=== PATIENT | female | born 1960 | race Caucasian/White ===

== ENCOUNTER → 2017-06-22 | Outpatient (CLI) | payer BC, OTHER ==
[~2017-06-22] MED LIST: ANTI INFLAMMATORY; ASPI-586 PO; AZIT-21 PO; CLIMARA; CYCL10TA9 PO; ESOM20CA PO; LEVO175T2; LVT.112T; NF-ESOM40C; OSPE60TA2 PO; PRD20T PO; PRED20TA PO; THYR120T2 PO; TMZP15C; TRAM50TA2 PO; [UNRECOGNIZED DRUG - REMARK]
--- NOTE | 2017-06-22 11:12 | Diagnostic Imaging Report ---
PROCEDURE: MRI right joint lower extremity without contrast. TECHNIQUE: A multiplanar/multisequence noncontrast enhanced MRI of the right lower extremity was accomplished. INDICATION: Injury to the leg with pain. COMPARISON: There are no previous MRI examinations available for comparison. The plain film examination of the knee joints performed on 08/10/2015 failed to show any sign of an acute abnormality. FINDINGS: On the proton dense sagittal series, there is a vague area of increased signal within the substance of the posterior horn of the medial meniscus. This signal abnormality is in close proximity to the inferior articular surface of the meniscus and I suspect that this does represent a small tear. The lateral meniscus is intact. The proximal portions of the anterior cruciate and posterior cruciate ligaments are indistinct. I do suspect that these portions of the cruciate ligaments are partially torn. The quadriceps and infrapatellar tendons, fibular collateral ligament, biceps femoris tendon, and iliotibial band are intact. There is no sign of a tear of either the medial or lateral retinaculum. On the T2 coronal fat-saturated series, there is generalized increased signal involving the tibial spines. This finding could be secondary to degenerative disease alone. The possibility that there is an element of mild bone edema from a contusion should also be considered. There is no other abnormal signal arising from the osseous structures to suggest bone edema or a fracture. The knee joint is fairly well-maintained. There is a small joint effusion present. There may also be a miniscule Johnson's cyst. IMPRESSION: 1. The indistinct appearance of the proximal portions of the anterior and posterior cruciate ligaments would suggest that these portions of the cruciate ligaments are partially torn. There also appears to be a small tear involving the posterior horn of the medial meniscus. 2. The lateral meniscus and the other major ligaments and tendons are intact. 3. The area of altered signal involving the tibial spines may be related to bone edema from a contusion. This could also be degenerative in nature. Clinical followup is recommended. There is no acute bony abnormality noted otherwise. Dictated by: Dictated on workstation # [id number]
== END ==
LOC: RAD 09:22
PROVIDERS: ATTEND Family Medicine
DX: R93.6 Abnormal findings on diagnostic imaging of limbs (principal)
CPT/HCPCS: 73721

== ENCOUNTER 2017-08-28 10:40 | Emergency (ER) | payer BC, OTHER ==
[~2017-08-28] VITALS: Ht 157.5 cm; Wt 68.0 kg
--- OUTSIDE RECORDS SUMMARY | 2017-08-28 10:46 | XMS REPORT | Continuity of Care Document ---
Author Author [facility] Address Unknown Phone Unavailable Allergies Active Description Code Type Severity Reaction Onset Reported/Identified Relationship to Patient Clinical Status Yes codeine [id number] Drug Allergy Unknown N/A 06/06/2008 Yes morphine [id number] Drug Allergy Unknown N/A 06/06/2008 Yes Penicillins [id number] Drug Allergy Unknown N/A 06/06/2008 Yes Penicillins Drug Allergy N/A N/A 09/14/2012 Medications Problems Date Dx Coded Attending Type Code Diagnosis Diagnosed By 09/14/2012 381.81 EUSTACHIAN TUBE DYSFUNCTION 09/14/2012 473.9 SINUSITIS (CHRONIC) 09/14/2012 MARILU TURNER APRN 381.81 EUSTACHIAN TUBE DYSFUNCTION 09/14/2012 MARILU TURNER APRN 473.9 SINUSITIS (CHRONIC) 05/29/2013 368.10 VISUAL DISTURBANCE UNSPECIFIED 05/29/2013 379.00 SCLERITIS UNSPECIFIED 05/29/2013 MARILU TURNER APRN 368.10 VISUAL DISTURBANCE UNSPECIFIED 05/29/2013 MARILU TURNER APRN 379.00 SCLERITIS UNSPECIFIED 09/06/2013 MARILU TURNER APRN 719.46 PAIN- KNEE 01/12/2014 PRUDENCIO WARD, GRETCHEN Ruiz Ot 719.06 JOINT EFFUSION-L/LEG 01/12/2014 PRUDENCIO WARD, GRETCHEN Ruiz Ot 719.46 JOINT PAIN-L/LEG 12/22/2014 Ot 211.3 BENIGN NEOPLASM LG BOWEL 12/22/2014 Ot V16.0 FAMILY HX-GI MALIGNANCY 12/22/2014 Ot V76.51 SCREEN MAL NEOP-COLON 01/16/2015 Ot 305.1 01/16/2015 Ot 486 01/16/2015 Ot V72.84 01/18/2015 BRAD ALEJANDRA SENIOR MARKETING DATA ANALYST Ot 465.9 ACUTE URI NOS 01/18/2015 ALEJANDRABRAD RICHARD APRN Ot 787.02 NAUSEA ALONE 01/27/2015 Ot V72.84 02/10/2015 ORENDER DO, MARCELA S Ot 244.9 02/10/2015 ORENDER DO, MARCELA S Ot 729.5 02/10/2015 ORENDER DO, MARCELA S Ot 729.81 02/10/2015 ORENDER DO, MARCELA S Ot 780.79 02/10/2015 ORENDER DO, MARCELA S Ot 789.00 08/27/2015 ORENDER DO, MARCELA S Ot E03.9 08/27/2015 ORENDER DO, MARCELA S Ot M25.561 08/27/2015 ORENDER DO, MARCELA S Ot M25.562 12/20/2015 LAKHWINDER HEDRICK Ot F17.210 NICOTINE DEPENDENCE, CIGARETTES, UNCOMPL 12/20/2015 LAKHWINDER HEDRICK Ot M51.26 OTHER INTERVERTEBRAL DISC DISPLACEMENT , 12/20/2015 LAKHWINDER HEDRICK Ot S39.012A STRAIN OF MUSCLE, FASCIA AND TENDON OF L 12/20/2015 LAKHWINDER HEDRICK Ot W10.9XXA FALL (ON) (FROM) UNSPECIFIED STAIRS AND 12/20/2015 LAKHWINDER HEDRICK Ot Y92.[address] IN SINGLE-FAMILY (PRIVATE) COLE 12/20/2015 LAKHWINDER HEDRICK Ot Y99.8 OTHER EXTERNAL CAUSE STATUS 12/24/2015 OSCAR DIALLO Ot M54.5 04/09/2016 OSCAR DIALLO Ot M54.5 LOW BACK PAIN 04/13/2017 Ot V72.84 EXAM PRE-OPERATIVE NOS 04/13/2017 ORENDER DO, MARCELA S Ot 244.9 HYPOTHYROIDISM NOS 04/13/2017 ORENDER DO, MARCELA S Ot 729.5 PAIN IN LIMB 04/13/2017 SHAWNNDER DO, MARCELA S Ot 729.81 SWELLING OF LIMB 04/13/2017 ORENDER DO, MARCELA S Ot 780.79 OTH MALAISE FATIGUE 04/13/2017 ORENDER DO, MARCELA S Ot 789.00 ABDOMINAL PAIN, UNSPECIFIED SITE 04/13/2017 ORENDER DOALLYMARCELA S Ot E03.9 HYPOTHYROIDISM, UNSPECIFIED 04/13/2017 ORENDER DO, MARCELA S Ot M25.561 PAIN IN RIGHT KNEE 04/13/2017 SHAWNNDER DO, MARCELA S Ot M25.562 PAIN IN LEFT KNEE 04/13/2017 IMANIOSCAR POURED CONCRETE WALL TECHNICIAN Ot M54.5 LOW BACK PAIN 06/21/2017 Ot V72.84 EXAM PRE-OPERATIVE NOS 06/21/2017 ORENDER DO, MARCELA S Ot 244.9 HYPOTHYROIDISM NOS 06/21/2017 ORENDER DO, MARCELA S Ot 729.5 PAIN IN LIMB 06/21/2017 ORENDER DO, MARCELA S Ot 729.81 SWELLING OF LIMB 06/21/2017 SHAWNNDER DO, MARCELA S Ot 780.79 OTH MALAISE FATIGUE 06/21/2017 SHAWNNDER DO, MARCELA S Ot 789.00 ABDOMINAL PAIN, UNSPECIFIED SITE 06/21/2017 SHAWNNDER DO, MARCELA S Ot E03.9 HYPOTHYROIDISM, UNSPECIFIED 06/21/2017 SHAWNNDER DO, MARCELA S Ot M25.561 PAIN IN RIGHT KNEE 06/21/2017 SHAWNNDER DO, MARCELA S Ot M25.562 PAIN IN LEFT KNEE 06/21/2017 OSCAR DIALLO Julita POURED CONCRETE WALL TECHNICIAN Ot M54.5 LOW BACK PAIN 07/06/2017 SHAWNNDER DO, MARCELA S Ot R93.6 ABNORMAL FINDINGS ON DIAGNOSTIC IMAGING 07/12/2017 SHAWNNDER DO, MARCELA S Ot R93.6 ABNORMAL FINDINGS ON DIAGNOSTIC IMAGING Procedures Results Encounters ACCT No. Visit Date/Time Discharge Status Pt. Type Provider Facility Loc./Unit Complaint [id number] 09/06/2013 15:19:00 09/06/2013 23: 59:59 [facility] Outpatient MARILU TURNER APRN [id number] 05/29/2013 11:19:00 Document Registration [id number] 06/22/2017 09:22:00 2016 23:59:59 [facility] Outpatient SHAWNNDER DO, MARCELA S [facility] RAD R KNEE PAIN, [id number] 12/23/2015 08:56:00 2015 23:59:59 [facility] Outpatient OSCAR DIALLOP [facility] RAD ACUTE LBP [id number] 12/20/2015 13:34:00 2015 17:03:00 DIS Emergency LAKHWINDER HEDRICK [facility] ER BACK PAIN/INJ [id number] 08/10/2015 16:36:00 2014 23:59:59 CLS Outpatient MARCELA PETIT DO [facility] RAD HYPOTHYROIDISM,HLP,ARTHIRIS, BI KNEE PAIN [id number] 01/18/2015 09:37:00 2014 11:28:00 DIS Emergency BRAD ALEJANDRA APRN [facility] ER NAUSEA,DIZZINESS [id number] 01/16/2015 15:27:00 2014 23:59:59 CLS Outpatient MARCELA PETIT DO [facility] RAD LEFT LEG PAIN [id number] 01/12/2014 17:00:00 2013 17:54:00 DIS Emergency PRUDENCIO WARD, GRETCHEN Ruiz [facility] ER LEFT KNEE SWELLING [id number] 01/16/2015 15:26:00 Document Registration [id number] 01/16/2015 15:26:00 Document Registration [id number] 12/22/2014 09:05:00 Document Registration [id number] 09/14/2009 11:58:00 Document Registration
[2017-08-28] MEDS ORDERED: NS IV 1000 ML 1,000 ML IV ONE (11:12)
[2017-08-28] MEDS ORDERED: ONDANSETRON 4 MG/2 ML (SDV) Z0FRAN IVP ONE ×2 (11:15→14:15)
[2017-08-28] MEDS ORDERED: fentaNYL INJECTION 100 MCG/2 ML AMP IVP ONE (11:15)
[2017-08-28 11:20] LABS: BASOPHILS % (AUTO) 1 % (0-10); EOSINOPHILS # (AUTO) 0.1 10^3/uL (0.0-0.3); EOSINOPHILS % (AUTO) 2 % (0-10); LYMPHOCYTES % (AUTO) 39 % (12-44); MEAN CORPUSCULAR HEMOGLOBIN 31 PG (25-34); MEAN CORPUSCULAR HGB CONC 34 G/DL (32-36); MEAN CORPUSCULAR VOLUME 92 FL (80-99); MEAN PLATELET VOLUME 11.7 FL (7.4-10.4); MONOCYTES # (AUTO) 0.5 X 10^3 (0.0-1.0); MONOCYTES % (AUTO) 7 % (0-12); NEUTROPHILS # (AUTO) 3.9 X 10^3 (1.8-7.8); NEUTROPHILS % (AUTO) 52 % (42-75); PLATELET COUNT 222 10^3/uL (130-400); RED BLOOD COUNT 4.52 10^6/uL (4.35-5.85); RED CELL DISTRIBUTION WIDTH 14.6 % (10.0-14.5); WHITE BLOOD COUNT 7.6 10^3/uL (4.3-11.0)
[2017-08-28 11:37] LABS: ALBUMIN 4.6 GM/DL (3.2-4.5); BILIRUBIN,TOTAL 0.3 MG/DL (0.1-1.0); CALCIUM 9.7 MG/DL (8.5-10.1); CREATININE SERUM 0.97 MG/DL (0.60-1.30); MAGNESIUM 2.5 MG/DL (1.8-2.4); POTASSIUM 3.6 MMOL/L (3.6-5.0); TOTAL PROTEIN 7.8 GM/DL (6.4-8.2)
[2017-08-28] MEDS ORDERED: NS 100 ML (IVPB) BAG IV ONE (12:15)
[2017-08-28] MEDS ORDERED: IOHEXOL 350 MG/ML 100 ML (OMNIPAQUE 350) VIAL IV ONE (12:15)
--- NOTE | 2017-08-28 12:52 | Diagnostic Imaging Report ---
PROCEDURE: CT abdomen and pelvis with contrast. TECHNIQUE: Multiple contiguous axial images were obtained through the abdomen and pelvis after administration of intravenous contrast. INDICATION: Abdominal pain and nausea. Left lower quadrant pain. CONTRAST: 100 mL of Omnipaque 350 was administered intravenously. FINDINGS: There is mild dependent atelectasis in the lung bases. An indeterminate 1.2 cm nodule in the lower aspect of the right middle lobe is seen. This area was evaluated on a sagittal view of the lumbar spine CT from 12/20/2015 and suggests the presence of this nodular density, suggestive of scarring. A followup CT chest in 12 months to ensure further stability is recommended. A calcified granuloma in the left lung base is seen. The liver, gallbladder, pancreas, and the adrenal glands appear unremarkable. The kidneys have symmetric contrast enhancement and excretion. There is no hydronephrosis. The abdominal aorta is normal in caliber. No periaortic significantly enlarged lymph node is seen. There is a small fat-containing periumbilical hernia. No bowel obstruction. The appendix appears normal. Moderate to large amounts of fecal material are seen in the colon and rectum. There is no significant free fluid or fluid collection in the abdomen or pelvis. The osseous structures demonstrate a sclerotic focus in the left femoral head measuring 8 mm, probably a bone island. IMPRESSION: 1. Moderate to large amounts of fecal material are seen in the colon which may relate to constipation. Correlate clinically. 2. Small periumbilical fat-containing hernia. 3. A 1.2 cm right middle lobe nodule without change from December 2015 is favored to be a scar. A followup CT chest in 12 months is recommended to ensure further stability. Dictated by: Dictated on workstation # [id number]
--- NOTE | 2017-08-28 13:02 | ED Abdominal Pain ---
General Chief Complaint: Abdominal/GI Problems Stated Complaint: N/ABD PAIN AND BLOOD IN STOOL Nursing Triage Note: Patient advises she began experiencing severe abdominal pain at approx. 0900 this morning. She advises that she had a small bowel movement this morning that resulted in bleeding when wipeing. She advises that the abdominal pain has become progressively worse with no previous hx. of GI bleeding. Sepsis Screen: No Definite Risk Source of Information: Patient, Family, Spouse Exam Limitations: No Limitations History of Present Illness Time Seen By Provider: 11:30 Initial Comments 57-year-old female patient presents to the emergency department complains of severe abdominal pain beginning at 0900 this a.m. Patient reports having a small bowel movement this a.m. with a small amount of blood noted on the toilet paper after wiping. Patient does complain of pain with the bowel movement. Does report chronic constipation. Patient states she did have a "GI bug" approximately a week and a half ago. Now complains of severe abdominal pain, nausea, and vomiting. Denies fever or chills. Last colonoscopy was approximately 2 years ago. Patient states she is due to have another colonoscopy in the spring. Timing/Duration: Constant, Other (0900 this a.m.) Severity/Quality: Aching, Cramping Location: Generalized Abdomen Radiation: No Radiation Activities at Onset: None Modifying Factors: Worsens With Defecating, Worsens With Movement, Worsens With Palpation Allergies and Home Medications Allergies Coded Allergies: Penicillins (Verified Allergy, Unknown, 08/28/17) codeine (Verified Allergy, Unknown, 08/28/17) morphine (Verified Allergy, Unknown, 08/28/17) Home Medications Aspirin 81 Mg Tablet.dr, 81 MG PO DAILY, (Reported) Cyclobenzaprine HCl 10 Mg Tablet, 5-10 MG PO Q8H PRN for SPASMS, #10 Ref 0 Prescribed by: LAKHWINDER ALDANA on 12/20/15 1651 Esomeprazole Mag Trihydrate 20 Mg Capsule.dr, 1 CAP PO DAILY, #30 (Reported) Hydrocortisone 28.35 Gm Cream.appl, 28.35 GM RC UD, #1 Ref 0 Apply to the affected area 4 times daily 7-10 days Prescribed by: LAKHWINDER ALDANA on 08/28/17 1444 Polyethylene Glycol 3350 119 Gm Powder, 17 GM PO HS, #1 Ref 0 Prescribed by: LAKHWINDER ALDANA on 08/28/17 1444 Prednisone 20 Mg Tab, 40 MG PO DAILY, #10 Ref 0 Take 3 tabs(60mg)daily, decrease by 1/2 tab(10mg)daily. Prescribed by: LAKHWINDER ALDANA on 12/20/15 165 Thyroid,Pork 120 Mg Tablet, Unknown Dose PO DAILY, (Reported) Tramadol HCl 50 Mg Tablet, 50 MG PO Q4H PRN for PAIN, #14 Ref 0 Prescribed by: LAKHWINDER ALDANA on 12/20/151650 [Anti Inflammatory] , TAB DAILY, (Reported) Review of Systems Constitutional: No chills, No diaphoresis, No fever, No malaise EENTM: No Symptoms Reported Respiratory: Denies Cough, Denies Shortness of Air, Denies SOA With Exertion Cardiovascular: Denies Chest Pain, Denies Lightheadedness, Denies Palpitations , Denies Syncope Gastrointestinal: See HPI, Abdomen Distended, Abdominal Pain, Denies Blood Streaked Stools, Constipated, Denies Diarrhea, Denies Difficulty Swallowing, Nausea, Rectal Bleeding, Vomiting Genitourinary: Denies Burning, Denies Frequency, Denies Flank Pain, Denies Hematuria Musculoskeletal: no symptoms reported Skin: no symptoms reported Psychiatric/Neurological: No Symptoms Reported All Other Systems Reviewed Negative Unless Noted: Yes (Negative excepted noted.) Past Dnwrqux-Lkwcss-Jypiwn Hx Patient Social History Alcohol Use: Denies Use Recreational Drug Use: No Smoking Status: Current Everyday Smoker Type Used: Cigarettes Recent Foreign Travel: No Contact w/Someone Who Travel: No Recent Infectious Disease Expo: No Recent Hopitalizations: Yes Physical Abuse: No Sexual Abuse: No Immunizations Up To Date Date of Influenza Vaccine: Jul 16, 2014 Seasonal Allergies Seasonal Allergies: No Surgeries History of Surgeries: Yes 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 (x2), Hysterectomy Respiratory History of Respiratory Disorde: No Cardiovascular History of Cardiac Disorders: No Neurological History of Neurological Disord: No Reproductive System Hx Reproductive Disorders: No 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 Genitourinary History of Genitourinary Disor: No Gastrointestinal History of Gastrointestinal Di: No Gastrointestinal Disorders: Irritable Bowel Musculoskeletal History of Musculoskeletal Dis: No Endocrine History of Endocrine Disorders: Yes Endocrine Disorders: Hyperthyroidism HEENT History of HEENT Disorders: No Cancer History of Cancer: No Psychosocial History of Psychiatric Problem: No Suicide Risk Score: 0 Integumentary History of Skin or Integumenta: No Blood Transfusions History of Blood Disorders: No Reviewed Nursing Assessment Reviewed/Agree w Nursing PMH: Yes Family Medical History Significant Family History: No Pertinent Family Hx Physical Exam Vital Signs VS - Last 72 Hours, by Label 08/28/17 08/28/17 10:40 14:46 Temp 97.6 Pulse 74 65 Resp 14 14 B/P (MAP) 124/81 Pulse Ox 98 98 O2 Delivery Room Air Room Air Capillary Refill : Less Than 3 Seconds General Appearance: WD/WN, no apparent distress HEENT: PERRL/EOMI, pharynx normal Neck: supple, normal inspection Respiratory: lungs clear, normal breath sounds, no respiratory distress, no accessory muscle use Cardiovascular: normal peripheral pulses, regular rate, rhythm, no edema, no murmur Gastrointestinal: normal bowel sounds, no pulsatile mass, distended, guarding ( generalized guarding), No rebound, tenderness (generalized tenderness to palpation) Extremities: no pedal edema, normal capillary refill Back: normal inspection, no CVA tenderness Neurologic/Psychiatric: alert, normal mood/affect, oriented x 3 Skin: normal color, warm/dry Focused Exam Evaluation Lactate Level Laboratory Tests 08/28/17 11:28: Lactic Acid Level 1.55 Lactic Acid Level Laboratory Tests Test 08/28/17 11:28 Lactic Acid Level 1.55 MMOL/L (0.50-2.00) Progress/Results/Core Measures Results/Orders Lab Results Laboratory Tests Test 08/28/17 11:07 08/28/17 11:28 08/28/17 13:41 Range/Units White Blood Count 7.6 4.3-11.0 10^3/uL Red Blood Count 4.52 4.35-5.85 10^6/uL Hemoglobin 13.9 11.5-16.0 G/DL Hematocrit 41 35-52 % Mean Corpuscular Volume 92 80-99 FL Mean Corpuscular Hemoglobin 31 25-34 PG Mean Corpuscular Hemoglobin Concent 34 32-36 G/DL Red Cell Distribution Width 14.6 H 10.0-14.5 % Platelet Count 222 130-400 10^3/uL Mean Platelet Volume 11.7 H 7.4-10.4 FL Neutrophils (%) (Auto) 52 42-75 % Lymphocytes (%) (Auto) 39 12-44 % Monocytes (%) (Auto) 7 0-12 % Eosinophils (%) (Auto) 2 0-10 % Basophils (%) (Auto) 1 0-10 % Neutrophils # (Auto) 3.9 1.8-7.8 X 10^3 Lymphocytes # (Auto) 3.0 1.0-4.0 X 10^3 Monocytes # (Auto) 0.5 0.0-1.0 X 10^3 Eosinophils # (Auto) 0.1 0.0-0.3 10^3/uL Basophils # (Auto) 0.0 0.0-0.1 10^3/uL Sodium Level 141 135-145 MMOL/L Potassium Level 3.6 3.6-5.0 MMOL/L Chloride Level 107 98-107 MMOL/L Carbon Dioxide Level 20 L 21-32 MMOL/L Anion Gap 14 5-14 MMOL/L Blood Urea Nitrogen 17 7-18 MG/DL Creatinine 0.97 0.60-1.30 MG/DL Estimat Glomerular Filtration Rate 59 BUN/Creatinine Ratio 18 Glucose Level 96 70-105 MG/DL Calcium Level 9.7 8.5-10.1 MG/DL Magnesium Level 2.5 H 1.8-2.4 MG/DL Total Bilirubin 0.3 0.1-1.0 MG/DL Aspartate Amino Transf (AST/SGOT) 32 5-34 U/L Alanine Aminotransferase (ALT/SGPT) 22 0-55 U/L Alkaline Phosphatase 65 40-136 U/L Total Protein 7.8 6.4-8.2 GM/DL Albumin 4.6 H 3.2-4.5 GM/DL Lipase 50 8-78 U/L Lactic Acid Level 1.55 0.50-2.00 MMOL/L Urine Color YELLOW Urine Clarity CLEAR Urine pH 7 5-9 Urine Specific [place] 1.010 L 1.016-1.022 Urine Protein NEGATIVE NEGATIVE Urine Glucose (UA) NEGATIVE NEGATIVE Urine Ketones NEGATIVE NEGATIVE Urine Nitrite NEGATIVE NEGATIVE Urine Bilirubin NEGATIVE NEGATIVE Urine Urobilinogen NORMAL NORMAL MG/DL Urine Leukocyte Esterase NEGATIVE NEGATIVE Urine RBC (Auto) NEGATIVE NEGATIVE Urine RBC NONE /HPF Urine WBC NONE /HPF Urine Squamous Epithelial Cells 0-2 /HPF Urine Crystals NONE /LPF Urine Bacteria NEGATIVE /HPF Urine Casts NONE /LPF Urine Mucus NEGATIVE /LPF Urine Culture Indicated NO Urine Opiates Screen NEGATIVE NEGATIVE Urine Oxycodone Screen NEGATIVE NEGATIVE Urine Methadone Screen NEGATIVE NEGATIVE Urine Propoxyphene Screen NEGATIVE NEGATIVE Urine Barbiturates Screen NEGATIVE NEGATIVE Ur Tricyclic Antidepressants Screen NEGATIVE NEGATIVE Urine Phencyclidine Screen NEGATIVE NEGATIVE Urine Amphetamines Screen NEGATIVE NEGATIVE Urine Methamphetamines Screen NEGATIVE NEGATIVE Urine Benzodiazepines Screen NEGATIVE NEGATIVE Urine Cocaine Screen NEGATIVE NEGATIVE Urine Cannabinoids Screen NEGATIVE NEGATIVE My Orders Orders - LAKHWINDER ALDANA Ct Abdomen/Pelvis W (08/28/17 12:07) Iohexol Injection (Omnipaque 350 Mg/Ml 1 (08/28/17 12:15) Ns (Ivpb) (Sodium Chloride 0.9% Ivpb Bag (08/28/17 12:15) Fentanyl Injection (Sublimaze Injection (08/28/17 13:11) Methylnaltrexone Injection (Relistor Inj (08/28/17 13:15) Ondansetron Injection (Zofran Injectio (08/28/17 14:15) Bisacodyl Suppository (Dulcolax Supposit (08/28/17 14:15) Lidocaine 2% (Urojet) (Xylocaine Urojet) (08/28/17 14:15) Medications Given in ED Current Medications Medications Dose Ordered Sig/Kate Route Start Time Stop Time Status Last Admin Dose Admin Bisacodyl 20 mg ONCE ONCE MS 08/28/17 14:15 08/28/17 14:16 DC 08/28/17 14:29 20 MG Fentanyl Citrate 50 mcg ONCE ONCE IVP 08/28/17 11:15 08/28/17 11:16 DC 08/28/17 11:23 50 MCG Iohexol 100 ml ONCE ONCE IV 08/28/17 12:15 08/28/17 12:25 DC 08/28/17 12:25 100 ML Lidocaine HCl 10 ml ONCE ONCE TOP 08/28/17 14:15 08/28/17 14:16 DC 08/28/17 14:30 10 ML Methylnaltrexone [place] 12 mg ONCE ONCE SQ 08/28/17 13:15 08/28/17 13:16 DC 08/28/17 13:31 12 MG Ondansetron HCl 4 mg ONCE ONCE IVP 08/28/17 11:15 08/28/17 11:16 DC 08/28/17 11:23 4 MG Ondansetron HCl 4 mg ONCE ONCE IVP 08/28/17 14:15 08/28/17 14:16 DC 08/28/17 14:29 4 MG Sodium Chloride 100 ml ONCE ONCE IV 08/28/17 12:15 08/28/17 12:25 DC 08/28/17 12:25 80 ML Sodium Chloride 1,000 ml @ 0 mls/hr Q0M ONCE IV 08/28/17 11:12 08/28/17 11:15 DC 08/28/17 11:23 0 MLS/HR Vital Signs/I&O Vital Sign - Last 12Hours 08/28/17 08/28/17 10:40 14:46 Temp 97.6 Pulse 74 65 Resp 14 14 B/P (MAP) 124/81 Pulse Ox 98 98 O2 Delivery Room Air Room Air Blood Pressure Mean: 95 Diagnostic Imaging Diagonstic Imaging: CT Plain Films/CT/US/NM/MRI: abdomen, pelvis Comments FINDINGS: There is mild dependent atelectasis in the lung bases. An indeterminate 1.2 cm nodule in the lower aspect of the right middle lobe is seen. This area was evaluated on a sagittal view of the lumbar spine CT from 03/2016 and suggests the presence of this nodular density, suggestive of scarring. A followup CT chest in 12 months to ensure further stability is recommended. A calcified granuloma in the left lung base is seen. The liver, gallbladder, pancreas, and the adrenal glands appear unremarkable. The kidneys have symmetric contrast enhancement and excretion. There is no hydronephrosis. The abdominal aorta is normal in caliber. No periaortic significantly enlarged lymph node is seen. There is a small fat-containing periumbilical hernia. No bowel obstruction. The appendix appears normal. Moderate to large amounts of fecal material are seen in the colon and rectum. There is no significant free fluid or fluid collection in the abdomen or pelvis. The osseous structures demonstrate a sclerotic focus in the left femoral head measuring 8 mm, probably a bone island. IMPRESSION: 1. Moderate to large amounts of fecal material are seen in the colon which may relate to constipation. Correlate clinically. 2. Small periumbilical fat-containing hernia. 3. A 1.2 cm right middle lobe nodule without change from December 2015 is favored to be a scar. A followup CT chest in 12 months is recommended to ensure further stability. Dictated on workstation # [id number] Reviewed: Reviewed by Me (radiology report reviewed by me) Departure Communication (Admissions) Progress Notes Patient seen and evaluated. Labs obtained as well as CT abdomen/pelvis due to continued moderate to severe pain. Patient was given 50 g of fentanyl and 4 mg of Zofran with improvement in symptoms; however, patient's symptoms did return and did require another 50 g of fentanyl and [address] abdomen /pelvis showed moderate to severe constipation. Patient states she does take tramadol at home for chronic pain. I discussed all laboratory and diagnostic findings with the patient as well as symptoms being caused by the moderate to severe constipation. Patient was given 12 mg subcutaneous of Relistor to counteract the effects tramadol on the colon. Plan for discharge to home with follow-up as an outpatient with Dr. Kirkland. Return precautions were discussed with the patient as described in the discharge instructions of this report. Patient verbalizes understanding and agrees with the treatment plan. Patient ambulated from the emergency department without difficulty. Impression Impression: Primary Impression: Abdominal pain Qualified Codes: R10.84 - Generalized abdominal pain Additional Impression: Constipation Qualified Codes: K59.03 - Drug induced constipation Disposition: HOME, SELF-CARE Condition: Improved Departure-Patient Inst. Decision time for Depature: 14:35 Referrals: MARCELA KIRKLAND DO (PCP/Family) Primary Care Physician Patient Instructions: Constipation, Adult (DC), Acute Abdomen (Belly Pain), Adult (DC) Add. Discharge Instructions: All discharge instructions reviewed with patient and/or family. Voiced understanding. Medications as instructed. Drink plenty of fluids. Continue usual home medications. Colace stool softener 100 mg by mouth 2-3 times daily as needed for constipation. MiraLAX 17 g mixed with 8 ounces of fluids by mouth twice daily 3 days, then at bedtime as needed for constipation. Magnesium citrate one bottle followed by 8 ounces of fluids times 1 dose for severe constipation. High-fiber diet. Follow-up with your primary care provider for recheck as an outpatient. Call for appointment time. Return in the emergency department for worsened pain, fever, vomiting, vomiting blood, rectal bleeding, black stools, or any other concerns. Scripts Hydrocortisone (Proctosol-Hc) 28.35 Gm Cream.appl 28.35 GM RC UD, #1 EA 0 Refills Apply to the affected area 4 times daily 7-10 days Prov: LAKHWINDER ALDANA 08/28/17 Polyethylene Glycol 3350 (Miralax) 119 Gm Powder 17 GM PO HS, #1 EA 0 Refills Prov: LAKHWINDER ALDANA 08/28/17 LAKHWINDER ALDANA Aug 28, 2017 13:02
[2017-08-28] MEDS ORDERED: fentaNYL INJECTION 100 MCG/2 ML AMP IVP STA (13:11)
[2017-08-28] MEDS ORDERED: METHYLNALTREXONE 12 MG/0.6 ML (RELISTOR) VIAL SQ ONE (13:15)
[2017-08-28 13:51] LABS: BILIRUBIN,URINE NEGATIVE (NEGATIVE); KETONES,URINE NEGATIVE (NEGATIVE); LEUKOCYTE ESTERASE ,URINE NEGATIVE (NEGATIVE); NITRITE,URINE NEGATIVE (NEGATIVE); PH,URINE 7 (5-9); PROTEIN,URINE NEGATIVE (NEGATIVE); UROBILINOGEN,URINE NORMAL (NORMAL)
[2017-08-28 14:04] LABS: SQUAMOUS EPITHELIAL CELL,UR 0-2 /HPF
[2017-08-28] MEDS ORDERED: LIDOCAINE UROJET 2% GEL 10 ML PKG TOP ONE (14:15)
[2017-08-28] MEDS ORDERED: BISACODYL 10 MG SUPP (DULCOLAX) PR ONE (14:15)
[2017-08-28] MEDS ORDERED: POLY119P5 PO (14:44)
[2017-08-28] MEDS ORDERED: HYDR28.341 RC (14:44)
[2017-08-28 14:46] VITALS: BP 119/77
== END 2017-08-28 14:48 | disposition home or self-care (01) ==
LOC: EDUNIT# 10:40 → ER 10:42
DX: K59.00 Constipation, unspecified (principal); E05.90 Thyrotoxicosis, unspecified without thyrotoxic crisis or storm; F17.210 Nicotine dependence, cigarettes, uncomplicated; Z90.710 Acquired absence of both cervix and uterus; Z87.59 Personal history of other complications of pregnancy, childbirth and the puerperium; Z87.19 Personal history of other diseases of the digestive system; Z79.82 Long term (current) use of aspirin
CPT/HCPCS: 36415; 74177; 80053; 80306; 81000; 83605; 83690; 83735; 85025

== ENCOUNTER 2018-11-18 16:40 | Observation (INO) | payer BC, OTHER ==
[~2018-11-18] VITALS: Ht 157.5 cm; Wt 67.3 kg
[~2018-11-18 16:40] MED LIST changes: +HYDR28.341 RC; +POLY119P5 PO
--- OUTSIDE RECORDS SUMMARY | 2018-11-18 17:03 | XMS REPORT | Continuity of Care Document ---
Author Author [facility] Address Unknown Phone Unavailable Allergies Active Description Code Type Severity Reaction Onset Reported/Identified Relationship to Patient Clinical Status Yes Penicillins Drug Allergy N/A N/A 09/14/2012 Yes codeine [id number] Drug Allergy Unknown N/A 08/28/2017 Yes morphine [id number] Drug Allergy Unknown N/A 08/28/2017 Yes Penicillins [id number] Drug Allergy Unknown N/A 08/28/2017 Medications There is no data. 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 Ot 465.9 ACUTE URI NOS 01/18/2015 BRAD ALEJANDRA APRN Ot 787.02 NAUSEA ALONE 01/27/2015 Ot [...] LAKHWINDER HEDRICK Ot M51.26 OTHER INTERVERTEBRAL DISC DISPLACEMENT, 12/20/2015 LAKHWINDER HEDRICK Ot S39.012A STRAIN OF MUSCLE, FASCIA AND TENDON OF L 12/20/2015 LAKHWINDER HEDRICK Ot W10.9XXA FALL (ON) (FROM) UNSPECIFIED STAIRS AND 12/20/2015 LAKHWINDER HEDRICK Ot Y92.[address] IN SINGLE-FAMILY (PRIVATE) COLE 12/20/2015 LAKHWINDER HEDRICK Ot Y99.8 OTHER EXTERNAL CAUSE STATUS 12/24/2015 OSCAR DIALLO Ot M54.5 04/09/2016 OSCAR DIALLO Ot M54.5 LOW BACK PAIN 04/13/2017 Ot V72.84 EXAM PRE- OPERATIVE NOS 04/13/2017 ORENDER DO, MARCELA S Ot 244.9 HYPOTHYROIDISM NOS 04/13/2017 ORENDER DO, MARCELA S Ot 729.5 PAIN IN LIMB 04/13/2017 ORENDER DO, MARCELA S Ot 729.81 SWELLING OF LIMB 04/13/2017 ORENDER DO, MARCELA S Ot 780.79 OTH MALAISE FATIGUE 04/13/2017 ORENDER DO, MARCELA S Ot 789.00 ABDOMINAL PAIN, UNSPECIFIED SITE 04/13/2017 ORENDER DO, MARCELA S Ot E03.9 HYPOTHYROIDISM, UNSPECIFIED 04/13/2017 ORENDER DO, MARCELA S Ot M25.561 PAIN IN RIGHT KNEE 04/13/2017 ORENDER DO, MARCELA S Ot M25.562 PAIN IN LEFT KNEE 04/13/2017 OSCAR DIALLO MANAGER MATH Ot M54.5 LOW BACK PAIN 06/21/2017 Ot V72.84 EXAM PRE- OPERATIVE NOS 06/21/2017 ORENDER DO, MARCELA S Ot 244.9 HYPOTHYROIDISM NOS 06/21/2017 ORENDER DO, MARCELA S Ot 729.5 PAIN IN LIMB 06/21/2017 ORENDER DO, MARCELA S Ot 729.81 SWELLING OF LIMB 06/21/2017 ORENDER DO, MARCELA S Ot 780.79 OTH MALAISE FATIGUE 06/21/2017 ORENDER DO, MARCELA S Ot 789.00 ABDOMINAL PAIN, UNSPECIFIED SITE 06/21/2017 SHAWNNDER DO, MARCELA S Ot E03.9 HYPOTHYROIDISM, UNSPECIFIED 06/21/2017 ORENDER DO, MARCELA S Ot M25.561 PAIN IN RIGHT KNEE 06/21/2017 ORENDER DO, MARCELA S Ot M25.562 PAIN IN LEFT KNEE 06/21/2017 OSCAR DIALLO MANAGER MATH Ot M54.5 LOW BACK PAIN 07/06/2017 SHAWNNDER DO, MARCELA S Ot R93.6 ABNORMAL FINDINGS ON DIAGNOSTIC IMAGING 07/12/2017 SHAWNNDER DO, MARCELA S Ot R93.6 ABNORMAL FINDINGS ON DIAGNOSTIC IMAGING 08/28/2017 ORENDER DO, MARCELA S Ot R93.6 ABNORMAL FINDINGS ON DIAGNOSTIC IMAGING 08/28/2017 LAKHWINDER HEDRICK Ot E05.90 THYROTOXICOSIS, UNSP WITHOUT THYROTOXIC 08/28/2017 LAKHWINDER HEDRICK Ot F17.210 NICOTINE DEPENDENCE, CIGARETTES, UNCOMPL 08/28/2017 LAKHWINDER HEDRICK Ot K59.00 CONSTIPATION, UNSPECIFIED 08/28/2017 LAKHWINDER HEDRICK Ot R10.84 GENERALIZED ABDOMINAL PAIN 08/28/2017 LAKHWINDER HEDRICK Ot Z79.82 RESIDENTIAL (CURRENT) USE OF ASPIRIN 08/28/2017 LAKHWINDER HEDRICK Ot Z87.19 PERSONAL HISTORY OF OTHER DISEASES OF TH 08/28/2017 LAKHWINDER HEDRICK Ot Z87.59 PERSONAL HISTORY OF COMP OF PREG, CHLDBR 08/28/2017 LAKHWINDER HEDRICK Ot Z90.710 ACQUIRED ABSENCE OF BOTH CERVIX AND UTER 09/03/2017 LAKHWINDER HEDRICK Ot E05.90 THYROTOXICOSIS, UNSP WITHOUT THYROTOXIC 09/03/2017 LAKHWINDER HEDRICK Ot F17.210 NICOTINE DEPENDENCE, CIGARETTES, UNCOMPL 09/03/2017 LAKHWINDER HEDRICK Ot K59.00 CONSTIPATION, UNSPECIFIED 09/03/2017 LAKHWINDER HEDRICK Ot R10.84 GENERALIZED ABDOMINAL PAIN 09/03/2017 LAKHWINDER HEDRICK Ot 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 Results Test Result Range Complete blood count (CBC) with automated white blood cell (WBC) differential - 08/28/17 11:07 Blood leukocytes automated count (number/volume) 7.6 10*3/uL 4.3-11.0 Blood erythrocytes automated count (number/volume) 4.52 10*6/uL 4.35-5.85 Venous blood hemoglobin measurement (mass/volume) 13.9 g/dL 11.5-16.0 Blood hematocrit (volume fraction) 41 % 35-52 Automated erythrocyte mean corpuscular volume 92 [foz_us] 80-99 Automated erythrocyte mean corpuscular hemoglobin (mass per erythrocyte) 31 pg 25-34 Automated erythrocyte mean corpuscular hemoglobin concentration measurement ( mass/volume) 34 g/dL 32-36 Automated erythrocyte distribution width ratio 14.6 % 10.0-14.5 Automated blood platelet count (count/volume) 222 10*3/uL 130-400 Automated blood platelet mean volume measurement 11.7 [foz_us] 7.4-10.4 Automated blood neutrophils/100 leukocytes 52 % 42-75 Automated blood lymphocytes/100 leukocytes 39 % 12-44 Blood monocytes/100 leukocytes 7 % 0-12 Automated blood eosinophils/100 leukocytes 2 % 0-10 Automated blood basophils/100 leukocytes 1 % 0-10 Blood neutrophils automated count (number/volume) 3.9 10*3 1.8-7.8 Blood lymphocytes automated count (number/volume) 3.0 10*3 1.0-4.0 Blood monocytes automated count (number/volume) 0.5 10*3 0.0-1.0 Automated eosinophil count 0.1 10*3/uL 0.0-0.3 Automated blood basophil count (count/volume) 0.0 10*3/uL 0.0-0.1 Comprehensive metabolic panel - 08/28/17 11:07 Serum or plasma sodium measurement (moles/volume) 141 mmol/L 135-145 Serum or plasma potassium measurement (moles/volume) 3.6 mmol/L 3.6-5.0 Serum or plasma chloride measurement (moles/volume) 107 mmol/L 98-107 Carbon dioxide 20 mmol/L 21-32 Serum or plasma anion gap determination (moles/volume) 14 mmol/L 5-14 Serum or plasma urea nitrogen measurement (mass/volume) 17 mg/dL 7-18 Serum or plasma creatinine measurement (mass/volume) 0.97 mg/dL 0.60-1.30 Serum or plasma urea nitrogen/creatinine mass ratio 18 NRG Serum or plasma creatinine measurement with calculation of estimated glomerular filtration rate 59 NRG Serum or plasma glucose measurement (mass/volume) 96 mg/dL 70-105 Serum or plasma calcium measurement (mass/volume) 9.7 mg/dL 8.5-10.1 Serum or plasma total bilirubin measurement (mass/volume) 0.3 mg/dL 0.1-1.0 Serum or plasma alkaline phosphatase measurement (enzymatic activity/volume) 65 U/L 40-136 Serum or plasma aspartate aminotransferase measurement (enzymatic activity/ volume) 32 U/L 5-34 Serum or plasma alanine aminotransferase measurement (enzymatic activity/volume ) 22 U/L 0-55 Serum or plasma protein measurement (mass/volume) 7.8 g/dL 6.4-8.2 Serum or plasma albumin measurement (mass/volume) 4.6 g/dL 3.2-4.5 Magnesium - 08/28/17 11:07 Magnesium 2.5 mg/dL 1.8-2.4 Lipase - 08/28/17 11:07 Lipase 50 U/L 8-78 Blood lactic acid measurement (moles/volume) - 08/28/17 11:28 Blood lactic acid measurement (moles/volume) 1.55 mmol/L 0.50-2.00 Complete urinalysis with reflex to culture - 08/28/17 13:41 Urine color determination YELLOW NRG Urine clarity determination CLEAR NRG Urine pH measurement by test strip 7 5-9 Specific gravity of urine by test strip 1.010 1.016- 1.022 Urine protein assay by test strip, semi-quantitative NEGATIVE NEGATIVE Urine glucose detection by automated test strip NEGATIVE NEGATIVE Erythrocytes detection in urine sediment by light microscopy NEGATIVE NEGATIVE Urine ketones detection by automated test strip NEGATIVE NEGATIVE Urine nitrite detection by test strip NEGATIVE NEGATIVE Urine total bilirubin detection by test strip NEGATIVE NEGATIVE Urine urobilinogen measurement by automated test strip (mass/volume) NORMAL NORMAL Urine leukocyte esterase detection by dipstick NEGATIVE NEGATIVE Automated urine sediment erythrocyte count by microscopy (number/high power field) NONE NRG Automated urine sediment leukocyte count by microscopy (number/high power field ) NONE NRG Bacteria detection in urine sediment by light microscopy NEGATIVE NRG Squamous epithelial cells detection in urine sediment by light microscopy 0-2 NRG Crystals detection in urine sediment by light microscopy NONE NRG Casts detection in urine sediment by light microscopy NONE NRG Mucus detection in urine sediment by light microscopy NEGATIVE NRG Complete urinalysis with reflex to culture NO NRG Urine drug screening test - 08/28/17 13:41 Urine phencyclidine detection by screening method NEGATIVE NEGATIVE Urine benzodiazepines detection by screening method NEGATIVE NEGATIVE Urine cocaine detection NEGATIVE NEGATIVE Urine amphetamines detection by screening method NEGATIVE NEGATIVE Urine methamphetamine detection by screening method NEGATIVE NEGATIVE Urine cannabinoids detection by screening method NEGATIVE NEGATIVE Urine opiates detection by screening method NEGATIVE NEGATIVE Urine barbiturates detection NEGATIVE NEGATIVE Screening urine tricyclic antidepressants detection NEGATIVE NEGATIVE Urine methadone detection by screening method NEGATIVE NEGATIVE Urine oxycodone detection NEGATIVE NEGATIVE Urine propoxyphene detection NEGATIVE NEGATIVE Encounters ACCT No. Visit Date/Time Discharge Status Pt. 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, MARILU A [id number] 05/29/2013 11:19:00 Document Registration 04/28/18 10/01/2018 09:06:07 10/01/2018 23:59:59 CLS Outpatient [id number] 01/18/2015 09:37:53 ACT Document Registration [id number] 08/28/2017 10:42:00 08/28/2017 14:48:00 DIS Emergency LAKHWINDER HEDRICK [facility] ER N/ABD PAIN AND BLOOD IN STOOL [id number] 06/22/2017 09:22:00 06/22/2017 23:59:59 CLS Outpatient MARCELA PETIT DO [facility] RAD R KNEE PAIN, [id number] 12/23/2015 08:56:00 12/23/2015 23:59:59 CLS Outpatient OSCAR DIALLO MANAGER MATH [facility] RAD ACUTE LBP [id number] 12/20/2015 13:34:00 12/20/2015 17:03:00 DIS Emergency LAKHWINDER HEDRICK [facility] ER BACK PAIN/INJ [id number] 08/10/2015 16:36:00 08/10/2015 23:59:59 CLS Outpatient MARCELA PETIT DO S [facility] RAD HYPOTHYROIDISM,HLP, ARTHIRIS,BI KNEE PAIN [id number] 01/18/2015 09:37:00 01/18/2015 11:28:00 DIS Emergency BRAD ALEJANDRA APRN [facility] ER NAUSEA,DIZZINESS [id number] 01/16/2015 15:27:00 01/16/2015 23:59:59 CLS Outpatient MARCELA PETIT DO S [facility] RAD LEFT LEG PAIN [id number] 01/12/2014 17:00:00 01/12/2014 17:54:00 DIS Emergency GRETCHEN FLANNERY MD [facility] ER LEFT KNEE SWELLING [id number] 01/16/2015 15:26:00 Document Registration [id number] 01/16/2015 15:26:00 Document Registration [id number] 12/22/2014 09:05:00 Document Registration [id number] 09/14/2009 11:58:00 Document Registration
[2018-11-18 17:29] LABS: BASOPHILS % (AUTO) 1 % (0-10); EOSINOPHILS # (AUTO) 0.1 10^3/uL (0.0-0.3); EOSINOPHILS % (AUTO) 2 % (0-10); HEMATOCRIT 35 % (35-52); HEMOGLOBIN 11.5 G/DL (11.5-16.0); LYMPHOCYTES # (AUTO) 2.2 X 10^3 (1.0-4.0); LYMPHOCYTES % (AUTO) 40 % (12-44); MEAN CORPUSCULAR HEMOGLOBIN 32 PG (25-34); MEAN CORPUSCULAR HGB CONC 33 G/DL (32-36); MEAN CORPUSCULAR VOLUME 95 FL (80-99); MEAN PLATELET VOLUME 11.4 FL (7.4-10.4); MONOCYTES # (AUTO) 0.3 X 10^3 (0.0-1.0); MONOCYTES % (AUTO) 6 % (0-12); NEUTROPHILS # (AUTO) 2.8 X 10^3 (1.8-7.8); NEUTROPHILS % (AUTO) 51 % (42-75); PLATELET COUNT 200 10^3/uL (130-400); RED CELL DISTRIBUTION WIDTH 14.7 % (10.0-14.5); WHITE BLOOD COUNT 5.4 10^3/uL (4.3-11.0)
--- NOTE | 2018-11-18 17:45 | Diagnostic Imaging Report ---
EXAMINATION: Portable erect AP Chest at 5:35 p.m. INDICATION: Numbness and tingling. FINDINGS: The heart is borderline enlarged, and the heart does seem somewhat more prominent than noted on the prior exam of 09/14/2009. There are a few crowded bronchovascular markings in the right infrahilar region. These seem similar to the prior exam. The lungs are otherwise generally clear. There is no sign of failure, pneumonia, or a pleural effusion. The small nodular density overlying the left lung base seen previously is again evident and no different. I suspect that this is a granuloma. The mediastinum is not widened. The osseous structures are intact. IMPRESSION: There is borderline cardiomegaly, but there is no evidence for an acute cardiopulmonary abnormality. Dictated by: Dictated on workstation # [id number]
[2018-11-18 17:46] LABS: ALANINE AMINOTRANSFERASE 21 U/L (0-55); ALBUMIN 4.6 GM/DL (3.2-4.5); ALKALINE PHOSPHATASE 46 U/L (40-136); BILIRUBIN,TOTAL 0.5 MG/DL (0.1-1.0); BUN/CREATININE RATIO 19; CALCIUM 9.2 MG/DL (8.5-10.1); CARBON DIOXIDE 22 MMOL/L (21-32); CHLORIDE 106 MMOL/L (98-107); CREATININE SERUM 1.05 MG/DL (0.60-1.30); GFR ESTIMATED 54; GLUCOSE 82 MG/DL (70-105); SODIUM 141 MMOL/L (135-145); TOTAL PROTEIN 7.2 GM/DL (6.4-8.2)
[2018-11-18 17:49] LABS: BILIRUBIN,URINE NEGATIVE (NEGATIVE); CLARITY,URINE CLEAR; COLOR,URINE YELLOW; GLUCOSE, URINE (UA) NEGATIVE (NEGATIVE); KETONES,URINE NEGATIVE (NEGATIVE); LEUKOCYTE ESTERASE ,URINE 1+ (NEGATIVE); NITRITE,URINE NEGATIVE (NEGATIVE); PH,URINE 6.5 (5-9); PROTEIN,URINE 1+ (NEGATIVE); UROBILINOGEN,URINE NORMAL (NORMAL)
[2018-11-18 17:49] LABS: MAGNESIUM 2.6 MG/DL (1.8-2.4)
--- NOTE | 2018-11-18 17:49 | ED General ---
General Chief Complaint: Neurological Problems Stated Complaint: TINGLING IN ARMS/FINGER DISCOLORATION/FACIAL DROOP Nursing Triage Note: PT PRESENTS TO ED WITH COMPLAINTS OF BILATERAL EXTREMITY SWELLING IN HANDS AND FEET X 2 MONTHS. TINGLING/NUMBNESS IN BILAT HANDS AND ARMS INTERMITTENTLY X 2 MONTHS. PT REPORTS MONDAY HER R SIDE OF HER FACE STARTED TO FEEL NUMB AND HER TONGUE FEELS NUMBE. PT ALSO REPORTS SHE HAS BEEN DROPPING THINGS MORE OFTEN WITHIN THE PAST COUPLE MONTHS. PT REPORTS SHE HAS NOT SEEN IN PRIMARY DOCTOR IN YEARS. PT REPORTS SHE HAS NOT TAKEN HER THYROID MEDICATION FOR 8 MONTHS. Nursing Sepsis Screen: No Definite Risk Source of Information: Patient Exam Limitations: No Limitations History of Present Illness Date Seen by Provider: Nov 18, 2018 Time Seen by Provider: 17:12 Initial Comments Here with report of puffy eyes, puffy hands and legs, tingling in her fingers and overall feeling down for the last couple of months. Worse tonight. She hasn't seen her primary doctor in 8 months or year she says. She hasn't been taking her levothyroxin. Denies nausea or vomiting. Does state that she started to feel tingling in her face. Admits to losing hair and feeling cold all the time. Timing/Duration: Getting Worse, Other (several months) Severity: Moderate Associated Systoms: No Chest Pain, No Cough, No Diaphoresis, No Fever/Chills; Malaise; No Nausea/Vomiting, No Shortness of Air; Weakness Allergies and Home Medications Allergies Coded Allergies: Penicillins (Verified Allergy, Unknown, 08/28/17) codeine (Verified Allergy, Unknown, 08/28/17) morphine (Verified Allergy, Unknown, 08/28/17) Home Medications No Active Prescriptions or Reported Meds Patient Home Medication List Home Medication List Reviewed: Yes Review of Systems Review of Systems Constitutional: see HPI; No chills, No fever; malaise EENTM: see HPI, other (reports tongue feels thick.); No eye pain, No mouth pain Respiratory: No cough Cardiovascular: No chest pain; edema Gastrointestinal: No abdominal pain; loss of appetite; No nausea, No vomiting Genitourinary: no symptoms reported Musculoskeletal: no symptoms reported Skin: change in hair/nails; No rash Psychiatric/Neurological: Depressed, Paresthesia Hematologic/Lymphatic: See HPI All Other Systems Reviewed Negative Unless Noted: Yes Past Legvohd-Xyhrcs-Ninngu Hx Past Med/Social Hx: Reviewed Nursing Past Med/Soc Hx Patient Social History Alcohol Use: Denies Use Recreational Drug Use: No Smoking Status: Former Smoker Type Used: Cigarettes Former Smoker, Quit: Dec 05, 2017 Recent Foreign Travel: No Contact w/Someone Who Travel: No Recent Infectious Disease Expo: No Recent Hopitalizations: Yes Physical Abuse: No Sexual Abuse: No Mistreated: No Fear: No Immunizations Up To Date Date of Influenza Vaccine: Jul 16, 2014 Seasonal Allergies Seasonal Allergies: No Past Medical History Surgeries: Yes Section, Hysterectomy Respiratory: No Cardiac: No Neurological: No Reproductive Disorders: No 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 oz. 63.905024rb; 27.98 BMI Method:Stated General Appearance: No Apparent Distress, WD/WN HEENT: PERRL/EOMI, Pharynx Normal, Other (the eyelids bilateral. Loss of lateral aspect of eyebrows. Macroglossia.) Neck: Normal Inspection, Non Tender Respiratory: Lungs Clear, Normal Breath Sounds Cardiovascular: Regular Rate, Rhythm, No Murmur Gastrointestinal: Non Tender, Soft, Abnormal Bowel Sounds (hypoactive) Back: Normal Inspection, No CVA Tenderness, No Vertebral Tenderness Extremity: Normal Range of Motion, Non Tender, Pedal Edema Neurologic/Psychiatric: Alert, Oriented x3, Other (depressed affect) Skin: Warm/Dry, Pallor Progress/Results/Core Measures Suspected Sepsis Recent Fever Within 48 Hours: No Infection Criteria Present: None New/Unexplained Altered Menta: No Sepsis Screen: No Definite Risk SIRS Temperature:96.9 Pulse: 74 Respiratory Rate: 16 Laboratory Tests 11/18/18 17:17: White Blood Count 5.4 Blood Pressure 109 /85 Mean: 93 Laboratory Tests 11/18/18 17:17: Creatinine 1.05, Platelet Count 200, Total Bilirubin 0.5 Results/Orders Lab Results Laboratory Tests Test 11/18/18 17:17 11/18/18 17:40 Range/Units White Blood Count 5.4 4.3-11.0 10^3/uL Red Blood Count 3.65 L 4.35-5.85 10^6/uL Hemoglobin 11.5 11.5-16.0 G/DL Hematocrit 35 35-52 % Mean Corpuscular Volume 95 80-99 FL Mean Corpuscular Hemoglobin 32 25-34 PG Mean Corpuscular Hemoglobin Concent 33 32-36 G/DL Red Cell Distribution Width 14.7 H 10.0-14.5 % Platelet Count 200 130-400 10^3/uL Mean Platelet Volume 11.4 H 7.4-10.4 FL Neutrophils (%) (Auto) 51 42-75 % Lymphocytes (%) (Auto) 40 12-44 % Monocytes (%) (Auto) 6 0-12 % Eosinophils (%) (Auto) 2 0-10 % Basophils (%) (Auto) 1 0-10 % Neutrophils # (Auto) 2.8 1.8-7.8 X 10^3 Lymphocytes # (Auto) 2.2 1.0-4.0 X 10^3 Monocytes # (Auto) 0.3 0.0-1.0 X 10^3 Eosinophils # (Auto) 0.1 0.0-0.3 10^3/uL Basophils # (Auto) 0.0 0.0-0.1 10^3/uL Sodium Level 141 135-145 MMOL/L Potassium Level 4.0 3.6-5.0 MMOL/L Chloride Level 106 98-107 MMOL/L Carbon Dioxide Level 22 21-32 MMOL/L Anion Gap 13 5-14 MMOL/L Blood Urea Nitrogen 20 H 7-18 MG/DL Creatinine 1.05 0.60-1.30 MG/DL Estimat Glomerular Filtration Rate 54 BUN/Creatinine Ratio 19 Glucose Level 82 70-105 MG/DL Calcium Level 9.2 8.5-10.1 MG/DL Corrected Calcium 8.5-10.1 MG/DL Magnesium Level 2.6 H 1.8-2.4 MG/DL Total Bilirubin 0.5 0.1-1.0 MG/DL Aspartate Amino Transf (AST/SGOT) 33 5-34 U/L Alanine Aminotransferase (ALT/SGPT) 21 0-55 U/L Alkaline Phosphatase 46 40-136 U/L C-Reactive Protein High Sensitivity 0.06 0.00-0.50 MG/DL B-Type Natriuretic Peptide < 10.0 <100.0 PG/ML Total Protein 7.2 6.4-8.2 GM/DL Albumin 4.6 H 3.2-4.5 GM/DL Free Thyroxine < 0.40 L 0.70-1.48 NG/DL TSH [place] Testing 217.00 H 0.35-4.94 UIU/ML Urine Color YELLOW Urine Clarity CLEAR Urine pH 6.5 5-9 Urine Specific [place] 1.020 1.016-1.022 Urine Protein 1+ H NEGATIVE Urine Glucose (UA) NEGATIVE NEGATIVE Urine Ketones NEGATIVE NEGATIVE Urine Nitrite NEGATIVE NEGATIVE Urine Bilirubin NEGATIVE NEGATIVE Urine Urobilinogen NORMAL NORMAL MG/DL Urine Leukocyte Esterase 1+ H NEGATIVE Urine RBC (Auto) NEGATIVE NEGATIVE Urine RBC NONE /HPF Urine WBC 2-5 /HPF Urine Squamous Epithelial Cells 0-2 /HPF Urine Crystals NONE /LPF Urine Bacteria NEGATIVE /HPF Urine Casts NONE /LPF Urine Mucus LARGE H /LPF Urine Culture Indicated NO My Orders Orders - DELLA HUMPHRIES MD Ekg Tracing (11/18/18 17:21) BNP (11/18/18 17:21) Cbc With Automated Diff (11/18/18 17:21) Comprehensive Metabolic Panel (11/18/18 17:21) Hs C Reactive Protein (11/18/18 17:21) Magnesium (11/18/18 17:21) Thyroid Analyzer (11/18/18 17:21) Ua Culture If Indicated (11/18/18 17:21) Chest 1 View, Ap/Pa Only (11/18/18 17:21) Free T4 (Free Thyroxine) (11/18/18 17:17) Levothyroxine Injection (Synthroid Injec (11/18/18 19:01) Vital Signs/I&O 11/18/18 16:58 Temp 96.9 Pulse 74 Resp 16 B/P (MAP) 109/85 (93) Pulse Ox 97 Capillary Refill : Less Than 3 Seconds Blood Pressure Mean: 93 Progress Note : Progress Note Seen and evaluated. IV, labs, UA, chest x-ray and EKG ordered. TSH cascade ordered. Monitor patient. 1848: TSH 217. I did discuss the case with Dr. Parekh, T4 is pending. Patient has pretty significant hypothyroidism currently with free T4 pending. Given current symptoms and blood pressure in the 90s with heart rate in the 60s, patient is showing signs of moderate to severe hypothyroidism. We will admit the patient overnight. Given her current symptoms, we will give dose of IV levothyroxine at 4 mcg/kg 1 and initiate oral levothyroxine in the morning. I did discuss at length with the patient regarding the importance of thyroid replacement and management and the importance of following up with her doctor as hypothyroidism and myxedema coma can be deadly. Patient verbalize understanding. Daughter at bedside and agrees. Admit, observation status. Patient family agree with plan. ECG Initial ECG Impression Date: Nov 18, 2018 Initial ECG Impression Time: 17:24 Initial ECG Rate: 66 Initial ECG Rhythm: Normal Sinus Comment Sinus rhythm with low voltage and all leads. Rightward axis. No evidence of ST elevation [place]. Change from previous of May, with respect to axis and voltage. Interpreted by me. Diagnostic Imaging Diagonstic Imaging: Xray Plain Films/CT/US/NM/MRI: chest Comments [facility]. [place], [place] NAME: [facility]ERONICA Z[facility]AN [facility] REC#: [id number] PT STATUS: REG ER : 1960 PHYSICIAN: DELLA HUMPHRIES MD ADMIT DATE: 11/18/18/ER Draft Date of Exam:11/18/18 CHEST 1 VIEW, AP/PA ONLY EXAMINATION: Portable erect AP chest at 5:35 p.m. INDICATION: Numbness and tingling. FINDINGS: The heart is borderline enlarged, and the heart does seem somewhat more prominent than noted on the prior exam of 09/14/2009. There are a few crowded bronchovascular markings in the right infrahilar region. These seem similar to the prior exam. The lungs are otherwise generally clear. There is no sign of failure, pneumonia, or a pleural effusion. The small nodular density overlying the left lung base seen previously is again evident and no different. I suspect that this is a granuloma. The mediastinum is not widened. The osseous structures are intact. IMPRESSION: There is borderline cardiomegaly, but there is no evidence for an acute cardiopulmonary abnormality. Dictated on workstation # [id number] Dict: 11/18/18 1739 Trans: 11/18/18 1745 [id number] Interpreted by: DANUTA DORADO MD Electronically signed by: Departure Communication (Admissions) Time/Spoke to Admitting Phy: 18:48 Impression Primary Impression: Severe hypothyroidism Disposition: ADMITTED INPATIENT Condition: Stable Admissions Decision to Admit Reason: Admit from ER (General) Decision to Admit/Date: Nov 18, 2018 Time/Decision to Admit Time: 18:48 Departure-Patient Inst. Referrals: MARCELA PETIT DO (PCP/Family) Primary Care Physician Scripts No Active Prescriptions or Reported Meds DELLA HUMPHRIES MD Nov 18, 2018 17:49
[2018-11-18 18:05] LABS: BACTERIA,URINE NEGATIVE /HPF; SQUAMOUS EPITHELIAL CELL,UR 0-2 /HPF
--- NOTE | 2018-11-18 19:00 | NUR ---
assumed primary nurse role
[2018-11-18] MEDS ORDERED: LEVOTHYROXINE 100 MCG INJ (SYNTHROID) VIAL IV STA (19:01)
[2018-11-18 19:17] LABS: FREE T4 (FREE THYROXINE) < 0.40 NG/DL (0.70-1.48)
--- OUTSIDE RECORDS SUMMARY | 2018-11-18 20:49 | XMS REPORT | Continuity of Care Document ---
Author Author [facility] of [facility] of [facility] Address Unknown Phone Unavailable Allergies Active Description Code Type Severity Reaction Onset Reported/Identified Relationship to Patient Clinical Status Yes Penicillins Drug Allergy N/A N/A 09/14/2012 Yes codeine [id number] Drug Allergy Unknown N/A 08/28/2017 Yes morphine [id number] Drug Allergy Unknown N/A 08/28/2017 Yes Penicillins [id number] Drug Allergy Unknown N/A 08/28/2017 Medications There [...] 486 01/16/2015 Ot V72.84 01/18/2015 BRAD ALEJANDRA RAILS DEVELOPER Ot 465.9 ACUTE URI NOS 01/18/2015 BRAD [...] PAIN IN LEFT KNEE 04/13/2017 OSCAR DIALLO CERTIFIED MARINE MECHANIC Ot M54.5 LOW BACK PAIN 06/21/2017 Ot [...] PAIN IN LEFT KNEE 06/21/2017 OSCAR DIALLO CERTIFIED MARINE MECHANIC Ot M54.5 LOW BACK PAIN 07/06/2017 SHAWNNDER [...] ABDOMINAL PAIN 08/28/2017 LAKHWINDER HEDRICK Ot Z79.82 HALF-WAY (CURRENT) USE OF ASPIRIN 08/28/2017 LAKHWINDER HEDRICK [...] ABDOMINAL PAIN 09/03/2017 LAKHWINDER HEDRICK Ot Z79.82 EVP GENERAL COUNSEL (CURRENT) USE OF ASPIRIN 09/03/2017 LAKHWINDER HEDRICK [...] Status Pt. Type Provider Facility Loc./Unit Complaint [id number] 09/06/2013 15:19:00 09/06/2013 23:59:59 CLS Outpatient RAJOTTE RAILS DEVELOPER, MARILU A [id number] 05/29/2013 11:19:00 Document Registration 04/28/18 10/01/2018 09:06:07 10/01/2018 23:59:59 CLS Outpatient [id number] 01/18/2015 09:37:53 ACT Document Registration [id number] 08/28/2017 10:42:00 08/28/2017 14:48:00 DIS Emergency LAKHWINDER HEDRICK [facility] ER N/ABD PAIN AND BLOOD IN STOOL [id number] 06/22/2017 09:22:00 06/22/2017 23:59:59 CLS Outpatient MARCELA PETTI DO [facility] RAD R KNEE PAIN, [id number] 12/23/2015 08:56:00 12/23/2015 23:59:59 CLS Outpatient OSCAR DIALLO CERTIFIED MARINE MECHANIC [facility] RAD ACUTE LBP [id number] 12/20/2015 13:34:00 12/20/2015 17:03:00 DIS Emergency LAKHWINDER HEDRICK [facility] ER BACK PAIN/INJ [id number] 08/10/2015 16:36:00 08/10/2015 23:59:59 CLS Outpatient MARCELA PETIT DO S [facility] RAD HYPOTHYROIDISM,HLP, ARTHIRIS,BI KNEE PAIN [id number] 01/18/2015 09:37:00 01/18/2015 11:28:00 DIS Emergency BRAD ALEJANDRA APRN [facility] ER NAUSEA,DIZZINESS [id number] 01/16/2015 15:27:00 01/16/2015 23:59:59 CLS Outpatient MARCELA PETIT DO S [facility] RAD LEFT LEG PAIN [id number] 01/12/2014 17:00:00 01/12/2014 17:54:00 DIS Emergency GRETCHEN FLANNERY MD [facility] ER LEFT KNEE SWELLING [id number] 01/16/2015 15:26:00 Document Registration [id number] 01/16/2015 15:26:00 Document Registration [id number] 12/22/2014 09:05:00 Document Registration [id number] 09/14/2009 11:58:00 Document Registration
--- NOTE | 2018-11-18 21:18 | NUR ---
BERONICA ZAMAN admitted to room 411-1, with an admitting diagnosis of HYPOTHYROID, on 11/18/18 from ED via WHEELCHAIR, accompanied by STAFF AND FAMILY.BERONICA ZAMAN introduced to surroundings, call light, bed controls, phone, TV, temperature control, lights, meal times, smoking policy, visitor policy, side rail policy, bathrooms and showers. Patient Rights given to patient in the handbook. BERONICA ZAMAN verbalizes understanding that [facility] is not responsible for the loss or damage to any personal effects or valuables that are kept in the patients posession during their hospitalization.
[2018-11-18 21:22] VITALS: BP 123/67
[2018-11-18] MEDS ORDERED: ONDANSETRON 4 MG/2 ML (SDV) Z0FRAN IV PRN (21:30)
[2018-11-18] MEDS ORDERED: ACETAMINOPHEN 325 MG TABLET PO PRN (21:30)
[2018-11-18] MEDS: NS IV 1000 ML 1,000 ML IV SCH (21:57)
[2018-11-18 23:54] VITALS: BP 121/69
[2018-11-19 04:00] VITALS: BP 107/67
[2018-11-19 06:04] LABS: BASOPHILS % (AUTO) 1 % (0-10); EOSINOPHILS # (AUTO) 0.2 10^3/uL (0.0-0.3); EOSINOPHILS % (AUTO) 3 % (0-10); HEMATOCRIT 33 % (35-52); HEMOGLOBIN 10.9 G/DL (11.5-16.0); LYMPHOCYTES # (AUTO) 2.5 X 10^3 (1.0-4.0); LYMPHOCYTES % (AUTO) 46 % (12-44); MEAN CORPUSCULAR HEMOGLOBIN 32 PG (25-34); MEAN CORPUSCULAR HGB CONC 33 G/DL (32-36); MEAN CORPUSCULAR VOLUME 96 FL (80-99); MEAN PLATELET VOLUME 11.7 FL (7.4-10.4); MONOCYTES # (AUTO) 0.3 X 10^3 (0.0-1.0); MONOCYTES % (AUTO) 6 % (0-12); NEUTROPHILS # (AUTO) 2.4 X 10^3 (1.8-7.8); NEUTROPHILS % (AUTO) 45 % (42-75); PLATELET COUNT 179 10^3/uL (130-400); RED CELL DISTRIBUTION WIDTH 14.4 % (10.0-14.5); WHITE BLOOD COUNT 5.5 10^3/uL (4.3-11.0)
[2018-11-19 06:19] LABS: BILIRUBIN,TOTAL 0.3 MG/DL (0.1-1.0); CREATININE SERUM 0.98 MG/DL (0.60-1.30); POTASSIUM 3.6 MMOL/L (3.6-5.0); TOTAL PROTEIN 6.6 GM/DL (6.4-8.2)
[2018-11-19] MEDS ORDERED: LEVOTHYROXINE 50 MCG (LEVOTHROID) TAB PO SCH (06:30)
[2018-11-19 08:00] VITALS: BP 110/63
--- NOTE | 2018-11-19 09:37 | NUR ---
PATIENT STATES SHE DOES NOT TAKE ANY MEDICATIONS AT HOME.
[2018-11-19] MEDS: NS IV 1000 ML 1,000 ML IV SCH ×2 (10:21→23:57)
[2018-11-19 12:00] VITALS: BP 102/66
[2018-11-19] MEDS ORDERED: CELECOXIB 100 MG (CeleBREX) CAP PO NR (13:00)
[2018-11-19] MEDS ORDERED: CATHETER FLUSH 10 ML SYR IV PRN (13:15)
[2018-11-19 16:00] VITALS: BP 112/76
[2018-11-19] MEDS ORDERED: PATIENT MAY USE OWN MEDS, ALL MC SCH (16:45)
[2018-11-19] MEDS ORDERED: LIOTHYRONINE 25 MCG PO ONE (16:45)
--- NOTE | 2018-11-19 16:57 | History & Physicial ---
History of Present Illness History of Present Illness Reason for visit/HPI This is a 58 year old female with a history of hypothyroidism and noncompliance with staying on her thyroid medications who presented to the emergency room with joint pain and tingling in her hands. She was found to be severely hypothyroid with a TSH of 217. It was decided to admit her for observation and to give her a loading dose of IV levothyroxine. The patient admits she has been very fatigued lately as well and states she has not taken her thyroid medications for a "long time." Date of Admission Nov 18, 2018 at 19:10 Date Seen by a Provider: Nov 19, 2018 Time Seen by a Provider: 12:30 I consulted on this patient on 11/19/18 16:52 Attending Physician Windy Kirkland DO Admitting Physician Windy Kirkland DO Consult Allergies and Home Medications Allergies Coded Allergies: Penicillins (Verified Allergy, Unknown, 08/28/17) codeine (Verified Allergy, Unknown, 08/28/17) morphine (Verified Allergy, Unknown, 08/28/17) Home Medications No Active Prescriptions or Reported Meds Patient Home Medication List Home Medication List Reviewed: Yes Past Ctpupav-Edoqyf-Wqaqld Hx Patient Social History Marrital Status: Employed/Student: employed Alcohol Use: Denies Use Number of Drinks Today: AA Recreational Drug Use: No Smoking Status: Former Smoker Former Smoker, Quit: Dec 05, 2017 Type Used: Cigarettes Physical Abuse Screen: No Sexual Abuse: No Recent Foreign Travel: No Contact w/other who traveled: No Recent Hopitalizations: Yes Recent Infectious Disease Expo: No Immunizations Up To Date Date of Influenza Vaccine: Jul 16, 2014 Seasonal Allergies Seasonal Allergies: No Surgeries Yes Section, Hysterectomy Respiratory No Cardiovascular No Neurological No Reproductive System Hx Reproductive Disorders: No JET PILOT History: Hysterectomy Genitourinary No Gastrointestinal Yes Irritable Bowel Musculoskeletal No Endocrine History of Endocrine Disorders: Yes Endocrine Disorders: Hyperthyroidism, Hypothyroidsim HEENT History of HEENT Disorders: No Cancer No Psychosocial History of Psychiatric Problem: No Integumentary History of Skin or Integumenta: No Blood Transfusions History of Blood Disorders: No Family Medical History Significant Family History: No Pertinent Family Hx Review of Systems Constitutional: malaise, weakness, weight gain EENTM: No see HPI, No no symptoms reported, No ear discharge, No hearing loss, No ear pain, No blurred vision, No double vision, No eye pain, No tearing, No vision loss, No dental problems, No hoarseness, No mouth pain, No mouth swelling , No epistaxis, No nose congestion, No nose pain, No throat pain, No throat swelling, No other Respiratory: No no symptoms reported, No see HPI, No cough, No dyspnea on exertion, No hemoptysis, No orthopnea, No phlegm, No short of breath, No stridor , No wheezing, No other Cardiovascular: No no symptoms reported, No see HPI, No chest pain, No edema, No Hx of Intervention, No palpitations, No syncope, No vascular heart diseas, No other Gastrointestinal: No RUQ, No LUQ, No RLQ, No LLQ, No no symptoms reported, No see HPI, No abdominal pain, No constipation, No diarrhea, No dysphagia, No hematemesis, No heartburn, No jaundice, No loss of appetite, No melena, No nausea, No vomiting, No other Genitourinary: No no symptoms reported, No see HPI, No decreased output, No discharge, No dysuria, No frequency, No hematuria, No hesitancy, No incontinence , No nocturia, No pain, No other Musculoskeletal: joint pain, joint swelling, muscle weakness Skin: No no symptoms reported, No see HPI, No change in color, No change in hair/nails, No dryness, No hx of skin cancer, No lesions, No lumps, No pruritus , No rash, No other Psychiatric/Neurological: Depressed, Tingling, Weakness Physical Exam Vital Signs Vital Signs - First Documented 11/18/18 11/18/18 16:58 21:22 Temp 96.9 Pulse 74 Resp 16 B/P (MAP) 109/85 (93) Pulse Ox 97 O2 Delivery Room Air Capillary Refill : Less Than 3 Seconds Height, Weight, BMI Height: 5'2.00" Weight: 148lbs. 6.0oz. 67.086903my; 27.1 BMI Method:Stated General Appearance: Moderate Distress HEENT: Normal ENT Inspection Neck: Supple Respiratory: Lungs Clear Cardiovascular: Regular Rate, Rhythm Gastrointestinal: Normal Bowel Sounds, Non Tender, Soft Rectal: Deferred Back: No CVA Tenderness Extremity: Non Tender, No Calf Tenderness, No Pedal Edema Neurologic/Psychiatric: Alert, Oriented x3 Skin: Warm/Dry Lymphatic: No Adenopathy Comments Laboratory Tests 11/18/18 17:17: White Blood Count 5.4, Red Blood Count 3.65L, Hemoglobin 11.5, Hematocrit 35, Mean Corpuscular Volume 95, Mean Corpuscular Hemoglobin 32, Mean Corpuscular Hemoglobin Concent 33, Red Cell Distribution Width 14.7H, Platelet Count 200, Mean Platelet Volume 11.4H, Neutrophils (%) (Auto) 51, Lymphocytes (%) (Auto) 40 , Monocytes (%) (Auto) 6, Eosinophils (%) (Auto) 2, Basophils (%) (Auto) 1, Neutrophils # (Auto) 2.8, Lymphocytes # (Auto) 2.2, Monocytes # (Auto) 0.3, Eosinophils # (Auto) 0.1, Basophils # (Auto) 0.0, Sodium Level 141, Potassium Level 4.0, Chloride Level 106, Carbon Dioxide Level 22, Anion Gap 13, Blood Urea Nitrogen 20H, Creatinine 1.05, Estimat Glomerular Filtration Rate 54, BUN/ Creatinine Ratio 19, Glucose Level 82, Calcium Level 9.2, Corrected Calcium , Magnesium Level 2.6H, Total Bilirubin 0.5, Aspartate Amino Transf (AST/SGOT) 33 , Alanine Aminotransferase (ALT/SGPT) 21, Alkaline Phosphatase 46, C-Reactive Protein High Sensitivity 0.06, B-Type Natriuretic Peptide < 10.0, Total Protein 7.2, Albumin 4.6H, Free Thyroxine < 0.40L, TSH [place] Testing 217.00H 11/18/18 17:40: Urine Color YELLOW, Urine Clarity CLEAR, Urine pH 6.5, Urine Specific [place] 1.020, Urine Protein 1+H, Urine Glucose (UA) NEGATIVE, Urine Ketones NEGATIVE, Urine Nitrite NEGATIVE, Urine Bilirubin NEGATIVE, Urine Urobilinogen NORMAL, Urine Leukocyte Esterase 1+H, Urine RBC (Auto) NEGATIVE, Urine RBC NONE, Urine WBC 2-5, Urine Squamous Epithelial Cells 0-2, Urine Crystals NONE, Urine Bacteria NEGATIVE, Urine Casts NONE, Urine Mucus LARGEH, Urine Culture Indicated NO 11/19/18 05:30: White Blood Count 5.5, Red Blood Count 3.42L, Hemoglobin 10.9L, Hematocrit 33L, Mean Corpuscular Volume 96, Mean Corpuscular Hemoglobin 32, Mean Corpuscular Hemoglobin Concent 33, Red Cell Distribution Width 14.4, Platelet Count 179, Mean Platelet Volume 11.7H, Neutrophils (%) (Auto) 45, Lymphocytes (%) (Auto) 46H, Monocytes (%) (Auto) 6, Eosinophils (%) (Auto) 3, Basophils (%) (Auto) 1, Neutrophils # (Auto) 2.4, Lymphocytes # (Auto) 2.5, Monocytes # (Auto) 0.3, Eosinophils # (Auto) 0.2, Basophils # (Auto) 0.0, Sodium Level 142, Potassium Level 3.6, Chloride Level 107, Carbon Dioxide Level 23, Anion Gap 12, Blood Urea Nitrogen 19H, Creatinine 0.98, Estimat Glomerular Filtration Rate 58, BUN/ Creatinine Ratio 19, Glucose Level 98, Calcium Level 9.0, Corrected Calcium 9.0 , Total Bilirubin 0.3, Aspartate Amino Transf (AST/SGOT) 27, Alanine Aminotransferase (ALT/SGPT) 18, Alkaline Phosphatase 45, Total Protein 6.6, Albumin 4.0 Assessment/Plan Assessment and Plan 1. Severe Hypothyroidism/Crisis--admitted for IV levothyroxine as well as will start oral levothyroxine and liothyronine--long discussion with patient about importance of complying with medications as well as followup 2. Arthralgias--likely combination of OA and hypothyroidism--start Celebrex 3. Paresthesias of Hands--likely from hypothyroidism but will check B12 level as well Admission Diagnosis Admission Status: Observation Clinical Quality Measures DVT/VTE Risk/Contraindication: Risk Factor Score Per Nursin RFS Level Per Nursing on Admit: 1=Low/No VTE PPX WINDY KIRKLAND DO Nov 19, 2018 16:57
[2018-11-19 20:00] VITALS: BP 116/65
[2018-11-19] MEDS: CELECOXIB 100 MG (CeleBREX) CAP PO SCH (20:12)
[2018-11-20] VITALS: BP 106/66
[2018-11-20 04:00] VITALS: BP 111/66
[2018-11-20] MEDS ORDERED: LEVOTHYROXINE 100 MCG (LEVOTHROID) TAB PO SCH (06:30)
[2018-11-20] MEDS ORDERED: VITAMIN D3 5,000 UNITS (CHOLECALCIFEROL ) CAPSULE PO SCH (07:00)
[2018-11-20 08:00] VITALS: BP 107/72
[2018-11-20] MEDS: CELECOXIB 100 MG (CeleBREX) CAP PO SCH (08:15)
[2018-11-20 12:00] VITALS: BP 112/79
[2018-11-20] MEDS ORDERED: MILK OF MAGNESIA 400 MG/5 ML 30 ML UDC PO NR (12:15)
[2018-11-20] MEDS ORDERED: SENNA W/DOCUSATE (SENOKOT S) TABLET PO NR (12:15)
--- NOTE | 2018-11-20 12:17 | Discharge Inst-Simple/Standard ---
Discharge Inst-Standard Discharge Medications New, Converted or Re-Newed RX: Transmitted to Pharmacy Patient Instructions/Follow Up Plan of Care/Instructions/FU: Fwup 1 month Activity as Tolerated: Yes Discharge Diet: No Restrictions MARCELA PETIT DO Nov 20, 2018 12:17
[2018-11-20] MEDS ORDERED: LEVO100T PO (12:19)
[2018-11-20] MEDS ORDERED: LIOTHYRONINE PO (12:19)
[2018-11-20] MEDS ORDERED: CHOL500044 PO (12:19)
[2018-11-20] MEDS ORDERED: CELE200C PO (12:20)
[2018-11-20] MEDS: NS IV 1000 ML 1,000 ML IV SCH (12:55)
--- NOTE | 2018-11-20 15:16 | NUR ---
Pastoral care visit, offered support, expressed department availability and services.
[2018-11-20 16:00] VITALS: BP 114/74
--- NOTE | 2018-11-20 17:43 | Discharge Summary ---
Diagnosis/Chief Complaint Date of Admission Nov 18, 2018 at 19:10 Date of Discharge Discharge Date: Nov 20, 2018 Discharge Diagnosis 1. Severe Hypothyroidism 2. Fatigue 3. Arthralgias--combination of OA worsened by hypothyroidism 4. Constipation 5. Noncompliance with medications Reason Hospital Visit This is a 58 year old female with a history of hypothyroidism and noncompliance with staying on her thyroid medications who presented to the emergency room with joint pain and tingling in her hands. She was found to be severely hypothyroid with a TSH of 217. It was decided to admit her for observation and to give her a loading dose of IV levothyroxine. The patient admits she has been very fatigued lately as well and states she has not taken her thyroid medications for a "long time. Discharge Summary Hospital Course Hospital Course This is a 58 year old female with a history of hypothyroidism and noncompliance with staying on her thyroid medications who presented to the emergency room with joint pain and tingling in her hands. She was found to be severely hypothyroid with a TSH of 217. It was decided to admit her for observation and to give her a loading dose of IV levothyroxine. The patient admits she has been very fatigued lately as well and states she has not taken her thyroid medications for a "long time. She was started on oral levothyroxine as well as liothyronine the next day. She still was very fatigued and was complaining of arthralgias as well as ongoing tingling in her hand so celebrex was added. The following hospital day she was feeling a little bit better and felt like she could go home. She did complain of constipation and was given senokot as well as MOM prior to discharge. She is instructed on no work for the rest of the week and will followup with me in my office in 1 week. Labs Laboratory Tests 11/18/18 17:17: Red Blood Count 3.65L, Red Cell Distribution Width 14.7H, Mean Platelet Volume 11.4H, Blood Urea Nitrogen 20H, Magnesium Level 2.6H, Albumin 4.6H, Free Thyroxine < 0.40L, TSH [place] Testing 217.00H 11/18/18 17:40: Urine Protein 1+H, Urine Leukocyte Esterase 1+H, Urine Mucus LARGEH 11/19/18 05:30: Red Blood Count 3.42L, Mean Platelet Volume 11.7H, Blood Urea Nitrogen 19H, Hemoglobin 10.9L, Hematocrit 33L, Lymphocytes (%) (Auto) 46H Procedures None. Discharge Physical Examination Allergies: Coded Allergies: Penicillins (Verified Allergy, Unknown, 08/28/17) codeine (Verified Allergy, Unknown, 08/28/17) morphine (Verified Allergy, Unknown, 08/28/17) Vitals & I&Os Vital Signs Date Time Temp Pulse Resp B/P (MAP) Pulse Ox O2 Delivery O2 Flow Rate FiO2 11/20/18 13:04 80 11/20/18 12:00 98.0 18 112/79 (90) 96 Room Air General Appearance: Alert, Oriented X3 Respiratory: Clear to Auscultation Cardiovascular: Regular Rate Abdominal: Normal Bowel Sounds, Soft, No Tenderness Skin: No Rashes Psych/Mental Status: Mental Status NL Discharge Home Medications Reviewed and agree with Discharge Medication list on patient's Discharge Instruction sheet Instructions to Patient/Family Please see electronic discharge instructions given to patient. Clinical Quality Measures DVT/VTE Risk/Contraindication: Risk Factor Score Per Nursin RFS Level Per Nursing on Admit: 1=Low/No VTE PPX MARCELA PETIT DO Nov 20, 2018 17:43
[2018-11-20 17:46] VITALS: BP 114/74
== END 2018-11-20 12:13 | disposition home or self-care (01) ==
LOC: EDUNIT# 16:40 → ER 16:42 → 4TH 19:10 → UNDOADMOB 19:10 → 4TH 21:20 → UNDODISOB 11-20 17:50
PROVIDERS: ADMIT Internal Medicine; ATTEND Family Medicine
DX: E03.9 Hypothyroidism, unspecified (principal); R53.83 Other fatigue; M19.91 Primary osteoarthritis, unspecified site; K59.09 Other constipation; Z91.19 Patient's noncompliance with other medical treatment and regimen; Z88.0 Allergy status to penicillin; Z88.5 Allergy status to narcotic agent; Z87.891 Personal history of nicotine dependence
CPT/HCPCS: 36415; 71045; 80053; 81000; 82607; 83735; 83880; 84439; 84443; 85025; 86141; 93005; G0378

== ENCOUNTER 2019-01-07 06:19 | Outpatient (CLI) | payer BC ==
[~2019-01-07] VITALS: Ht 157.5 cm; Wt 67.1 kg
[~2019-01-07 06:19] MED LIST changes: +CELE200C PO; +CHOL500044 PO; +LEVO100T PO; +LIOTHYRONINE PO
[2019-01-07] MEDS ORDERED: TRAM50TA2 PO (13:18)
[2019-01-07] MEDS ORDERED: ACET-2267 PO (13:18)
== END 2019-01-07 13:19 | disposition home or self-care (01) ==
LOC: PREOP 06:19
PROVIDERS: ATTEND Surgery
DX: Z01.818 Encounter for other preprocedural examination (principal)

== ENCOUNTER 2019-01-10 11:41 | Day surgery (SDC) | payer BC ==
[~2019-01-10] VITALS: Ht 157.5 cm; Wt 67.1 kg
[~2019-01-10 11:41] MED LIST changes: +ACET-2267 PO
[2019-01-10 12:00] VITALS: BP 109/70
[2019-01-10] MEDS ORDERED: LACTATED RINGERS 1,000 ML IV PRN (12:00)
[2019-01-10] MEDS ORDERED: LACTATED RINGERS 1,000 ML IV ONE (12:06)
[2019-01-10] MEDS ORDERED: PROPOFOL INJECTION 50 ML IV ONE (13:08)
[2019-01-10] MEDS ORDERED: MIDAZOLAM 2 MG/2 ML (VERSED) VIAL ONE (13:08)
--- NOTE | 2019-01-10 13:27 | Progress Note-Pre Operative ---
Pre-Operative Progress Note H&P Reviewed The H&P was reviewed, patient examined and no changes noted. Date Seen by Provider: Jan 10, 2019 Time Seen by Provider: 13:26 Date H&P Reviewed: Jan 10, 2019 Time H&P Reviewed: 13:26 Pre-Operative Diagnosis: blood in stool, hx polyps LINCOLN VIVAR DO Jan 10, 2019 13:27
--- NOTE | 2019-01-10 13:54 | Progress Note-Post Operative ---
Post-Operative Progess Note Surgeon (s)/Sales Representative Wire Rope (s) Surgeon LINCOLN VIVAR DO Sales Representative Wire Rope: NA Pre-Operative Diagnosis blood in stool, hx polyps Post-Operative Diagnosis Internal hemorrhoids, Normal colon Procedure & Operative Findings Date of Procedure 01/10/19 Procedure Performed/Findings Colonoscopy Anesthesia Type per DIESEL MECHANIC Estimated Blood Loss Estimated blood loss (mL): None Specimens/Packing Specimens Removed None LINCOLN VIVAR DO Jan 10, 2019 13:54
--- NOTE | 2019-01-10 13:56 | Discharge Instructions ---
Discharge Instructions Patient Instructions Patient Instructions Follow up with Dr. Ken in 2 weeks. Activity & Diet Discharge Diet: No Restrictions Activity as Tolerated: Yes LINCOLN KEN DO Jan 10, 2019 13:56
[2019-01-10 14:25] VITALS: BP 113/78
--- NOTE | 2019-01-10 14:53 | Anesthesia-General Post-Op ---
MAC Post Op Complications Complications None Follow Up Care/Instructions Patient Instructions None needed. Anesthesiology Discharge Order Discharge Order Patient was seen after the procedure and she was doing well, no complaints, stable vital signs, no apparent adverse anesthesia problems. ELIZABETH FITCH DO Jan 10, 2019 14:53
[2019-01-10 14:55] VITALS: BP 109/74
[2019-01-10 15:00] VITALS: BP 109/74
--- NOTE | 2019-01-11 00:32 | OPERATIVE REPORT ---
DATE OF SERVICE: 01/10/2019 PREOPERATIVE DIAGNOSES: 1. Blood in stools. 2. History of colon polyps. PROCEDURE: Colonoscopy. SURGEON: Lincoln Ken DO ANESTHESIA: Per TON CONTAINER SHIPPER. ESTIMATED BLOOD LOSS: None. COMPLICATIONS: None. INDICATIONS: The patient is a 58-year-old female with blood in stool or any history of polyps. She understands risks and benefits of procedure and wished to proceed with procedure. Consent was signed in the chart. DESCRIPTION OF PROCEDURE: The patient was taken to the endoscopy suite, placed in left lateral recumbent position. Timeout was performed. Digital rectal exam was performed. A previous surgery appears to be healed. No palpable polyps, mass or ulcerations. Good rectal tone. Scope was inserted in the rectum and advanced all the way to the cecum with minimal difficulty. Prep was adequate. Scope was inserted into the terminal ileum. No pathology noted. Scope was returned back into the colon. There were no polyps, masses or ulcerations in the cecum, ascending, transverse, descending and sigmoid colon. Once in the rectum, scope was retroflexed noting no other pathology. Only noting internal hemorrhoids. Scope was returned to its normal position, slowly until completely removed. The patient tolerated procedure well without complications and taken to recovery room in stable condition. RECOMMENDATIONS: The patient will follow up in 2 weeks to see how her symptoms are doing. If hemorrhoids are symptomatic, we would consider treatment. Otherwise, needs repeat colonoscopy in 5 years. If she has any issues before that, she should be seen at that time. Job ID: [id number] DocumentID: [id number] Dictated Date: 01/10/2019 14:09:46 Senior Sous Chef Date: 01/11/2019 00:32:47 Dictated By: LINCOLN KEN DO
== END 2019-01-10 15:00 | disposition home or self-care (01) ==
LOC: ENDO 11:41
PROVIDERS: ATTEND Surgery
DX: K92.1 Melena (principal); K64.8 Other hemorrhoids; Z86.010 Personal history of colon polyps; E03.9 Hypothyroidism, unspecified; K59.00 Constipation, unspecified; F17.210 Nicotine dependence, cigarettes, uncomplicated; Z79.899 Other long term (current) drug therapy

== ENCOUNTER → 2019-02-08 | Outpatient (CLI) | payer BC ==
--- NOTE | 2019-02-11 11:36 | Diagnostic Imaging Report ---
INDICATION: Screening. TECHNIQUE: Bilateral CC and MLO 3D mammography was performed. The current study was also evaluated with a Computer Aided Detection (CAD) system. COMPARISON: No prior examinations are available for comparison. FINDINGS: There are scattered fibroglandular densities bilaterally. There are a few tiny benign lymph nodes in the axillary region of the right breast. There are benign type calcifications. There is no dominant mass, spiculated lesion, or suspicious calcifications identified. The skin, nipples, and axillae are unremarkable. IMPRESSION: Benign findings. ACR BI-RADS Category 2: Benign findings. Result letter will be mailed to the patient. Note: At least 10% of breast cancer is not imaged by mammography. Dictated by: Dictated on workstation # [id number]
== END ==
LOC: RAD 08:31
PROVIDERS: ATTEND Family Medicine
DX: Z12.31 Encounter for screening mammogram for malignant neoplasm of breast (principal); R92.8 Other abnormal and inconclusive findings on diagnostic imaging of breast
CPT/HCPCS: 77067

== ENCOUNTER → 2019-05-07 | Outpatient (CLI) | payer BC ==
--- NOTE | 2019-05-07 08:57 | Diagnostic Imaging Report ---
PROCEDURE: MRI lumbar spine. TECHNIQUE: Multiplanar, multisequence MRI of the lumbar spine was performed without contrast. INDICATION: Low back pain. Right leg pain. COMPARISON: None. FINDINGS: Normal alignment. Vertebral body heights are preserved. Normal bone marrow signal. There is increased fluid within the facet joints at L4-L5 greater than L3-L4 bilaterally. There are small subcentimeter synovial facet cysts projecting posteriorly from the bilateral L4-L5 facet joints. Mild bilateral neural foraminal narrowing at L4-L5. No high-grade spinal canal, lateral recess or neural foraminal narrowing in the lumbar spine. No abnormal signal in the conus which terminates at L1-L2. Normal morphology of the cauda equina. The visualized abdominal and pelvic contents are unremarkable. IMPRESSION: 1. Degenerative facet arthropathy at L4-L5 greater than L3-L4 may be a local pain generator. 2. No high-grade neural impingement. 3. No acute osseous findings. Dictated by: Dictated on workstation # [id number]
== END ==
LOC: RAD 05-02 07:50
PROVIDERS: ATTEND Family Medicine
DX: M51.16 Intervertebral disc disorders with radiculopathy, lumbar region (principal); M46.86 Other specified inflammatory spondylopathies, lumbar region
CPT/HCPCS: 72148

== ENCOUNTER → 2019-11-11 | Outpatient (CLI) | payer BC ==
[~2019-11-11] MED LIST changes: -TRAM50TA2 PO; +TRM50T PO
--- NOTE | 2019-11-11 13:23 | Diagnostic Imaging Report ---
EXAMINATION: Magnetic resonance imaging of the knee without intravenous contrast DATE: November 11, 2019. COMPARISON: None. INDICATION: TECHNIQUE: Multiplanar, multisequence non contrast enhanced MR imaging was accomplished. FINDINGS: MENISCI: There is signal in the medial meniscus not meeting strict MRI criteria for definite diagnosis of tear. There is increased signal in the anterior horn of the lateral meniscus which most likely does reflect a lateral meniscal tear. LIGAMENTS AND TENDONS: There is mucoid degeneration of the anterior cruciate ligament with intact ligament fibers. The posterior cruciate ligament is intact. The medial collateral ligament is intact. The iliotibial band, mid third lateral capsular ligament, fibular collateral ligament, biceps femoris tendon and conjoined tendon are intact. The quadriceps tendon and patella ligament are intact. JOINT: There is mild thinning of the cartilage of the medial patellar facet. Medial and lateral compartment cartilage appears grossly intact. There is no knee joint effusion, intra-articular body, or prominent synovitis. BONE: There is unremarkable bone marrow signal. Specifically, negative for fracture, osteomyelitis, osteonecrosis, or marrow replacing process. BURSAE AND SOFT TISSUES: There is a small Johnson's cyst. Additional soft tissue assessment is unremarkable. IMPRESSION: 1. Probable tear of the anterior horn of the lateral meniscus. Signal in the medial meniscus not meeting strict MRI criteria for definite diagnosis of tear. 2. Mucoid degeneration of the anterior cruciate ligament with intact ligament fibers. Additional ligaments and tendons are intact. 3. Mild patellofemoral compartment osteoarthritis. No knee joint effusion, prominent synovitis, or intraarticular body. 4. No acute fracture, bone contusion, or evidence of osteonecrosis. 5. Small Johnson's cyst. Dictated by: Dictated on workstation # [id number]
== END ==
LOC: RAD 11:56
PROVIDERS: ATTEND Nurse Practitioner Family
DX: M17.11 Unilateral primary osteoarthritis, right knee (principal); M71.21 Synovial cyst of popliteal space [Baker], right knee
CPT/HCPCS: 73721

== ENCOUNTER 2020-03-16 13:29 | Emergency (ER) | payer OTHER, BC ==
[~2020-03-16] VITALS: Ht 157.4 cm; Wt 65.9 kg
--- NOTE | 2020-03-16 14:01 | ED Fall/Injury ---
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 Source: patient Exam Limitations: no limitations History of Present Illness Date Seen by Provider: Mar 16, 2020 Time Seen by Provider: 13:58 Initial Comments To ER with reports of fall while at work [employer] last night pushing a cart. Complains of pain to the left anterior ribs, pain to both knees. She was ambulatory to room 6. Did not hit her head. Occurred: yesterday Severity: moderate Context: unknown Associated Symptoms (Fall): Denies Symptoms Allergies and Home Medications Allergies Coded Allergies: Penicillins (Verified Allergy, Unknown, 08/28/17) codeine (Verified Allergy, Unknown, 08/28/17) morphine (Verified Allergy, Unknown, 08/28/17) Home Medications Acetaminophen 500 Mg Tablet, 1,000 MG PO HS, (Reported) take 2 (500mg) tabs Cholecalciferol (Vitamin D3) 5,000 Unit Tablet, 5,000 UNIT PO HS Prescribed by: MARCELA PETIT on 11/20/18 1219 Levothyroxine Sodium 100 Mcg Tablet, 100 MCG PO DAILY@0630 Prescribed by: MARCELA PETIT on 11/20/18 1219 Tramadol HCl 50 Mg Tablet, 50-100 MG PO q4-6 hours, (Reported) take 1-2 (50mg) tabs Patient Home Medication List Home Medication List Reviewed: Yes Review of Systems Review of Systems Constitutional: see HPI Eyes: No Symptoms Reported Ears, Nose, Mouth, Throat: no symptoms reported Respiratory: no symptoms reported Cardiovascular: no symptoms reported Genitourinary: no symptoms reported Musculoskeletal: no symptoms reported Skin: no symptoms reported Past Pfsvnzu-Rnwisf-Crshdd Hx Patient Social History Alcohol Use: Denies Use Recreational Drug Use: No Smoking Status: Former Smoker Type Used: Cigarettes Former Smoker, Quit: Dec 05, 2017 2nd Hand Smoke Exposure: No Recent Foreign Travel: No Contact w/Someone Who Travel: No Recent Infectious Disease Expo: No Recent Hopitalizations: No Immunizations Up To Date Date of Influenza Vaccine: Jul 16, 2014 Seasonal Allergies Seasonal Allergies: No Past Medical History Surgeries: Yes Section, Hysterectomy Respiratory: No Cardiac: No Neurological: No Reproductive Disorders: No 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 0.0oz. 67.346410ih; 26.00 BMI Method:Stated General Appearance: WD/WN, no apparent distress HEENT: PERRL/EOMI, normal ENT inspection Neck: non-tender, full range of motion Respiratory: normal breath sounds, no respiratory distress, no accessory muscle use Gastrointestinal: normal bowel sounds, non tender, soft, other (her abdomen is flat soft and nontender. Over the ninth and 10th ribs anterior and medially she does complain of some tenderness to palpation there is no erythema abrasion or ecchymosis however.) Extremities: normal range of motion, non-tender Neurologic/Psychiatric: alert, normal mood/affect, oriented x 3 Skin: normal color, warm/dry Fabiola Coma Score Best Eye Response: (4) Open Spontaneously Best Verbal Response: (5) Oriented Best Motor Response: (6) Obeys Commands Fabiola Total: 15 Progress/Results/Core Measures Results/Orders My Orders Orders - BRAD ALEJANDRA APRN Ribs/Unilateral With Chest (03/16/20 13:56) Vital Signs/I&O 03/16/20 13:48 Pulse 86 Resp 18 B/P (MAP) 117/75 (89) Pulse Ox 96 O2 Delivery Room Air Blood Pressure Mean: 89 Departure Impression Primary Impression: Rib contusion Qualified Codes: S20.212A - Contusion of left front wall of thorax, initial encounter Disposition: HOME, SELF-CARE Condition: Stable Departure-Patient Inst. Decision time for Depature: 14:01 Referrals: MARCELA PETIT DO (PCP/Family) Primary Care Physician Patient Instructions: Bruised Rib BRAD ALEJANDRA APRN Mar 16, 2020 14:01
--- NOTE | 2020-03-16 15:03 | Diagnostic Imaging Report ---
EXAMINATION: PA chest and left ribs at 02:20 p.m. INDICATION: Injury. FINDINGS: A single PA view of the chest and three views of the left ribs were obtained. The heart size is within normal limits and stable when compared to 11/18/2018. The small calcified granuloma in the left lung base seen previously is again evident and no different. The lungs are clear. There is no sign of a pulmonary contusion or pneumothorax. The mediastinum is not widened. The views of the ribs failed to show any evidence for a displaced rib fracture. IMPRESSION: There is no evidence for a displaced rib fracture on the left and there is no sign of an injury to the underlying left lung. Dictated by: Dictated on workstation # [id number]
[2020-03-16 15:24] VITALS: BP 115/78
== END 2020-03-16 15:24 | disposition home or self-care (01) ==
LOC: EDUNIT# 13:29 → ER 13:31
DX: S20.212A Contusion of left front wall of thorax, initial encounter (principal); E03.9 Hypothyroidism, unspecified; R40.2142 Coma scale, eyes open, spontaneous, at arrival to emergency department; R40.2252 Coma scale, best verbal response, oriented, at arrival to emergency department; R40.2362 Coma scale, best motor response, obeys commands, at arrival to emergency department; Z88.0 Allergy status to penicillin; Z88.5 Allergy status to narcotic agent; Z87.891 Personal history of nicotine dependence; W01.0XXA Fall on same level from slipping, tripping and stumbling without subsequent striking against object, initial encounter; Y92.59 Other trade areas as the place of occurrence of the external cause; Y99.0 Civilian activity done for income or pay
CPT/HCPCS: 71101

== ENCOUNTER → 2021-01-27 | Outpatient (CLI) | payer OTHER, BC ==
--- NOTE | 2021-01-27 13:33 | Diagnostic Imaging Report ---
INDICATION: Chronic lower back pain. COMPARISON: None FINDINGS: Frontal and lateral views of the lumbar spine were obtained. Alignment and vertebral heights are maintained. There is no fracture or destructive process. There is mild multilevel facet arthropathy. Intervertebral disc heights appear fairly well-maintained. Limited views of the abdomen demonstrate nonobstructive bowel gas pattern. IMPRESSION: 1. No acute fracture or dislocation of the lumbar spine. Dictated by: Dictated on workstation # [id number]
== END ==
LOC: RAD 12:49
PROVIDERS: ATTEND Family Medicine
DX: M54.16 Radiculopathy, lumbar region (principal)
CPT/HCPCS: 72100

== ENCOUNTER 2021-05-07 23:35 | Inpatient (IN) | payer BC, OTHER ==
[~2021-05-07] VITALS: Ht 157 cm; Wt 78.0 kg
[2021-05-07] MEDS ORDERED: SCOPOLAMINE 1.5 MG (TRANSDERM-SCOP) PATCH TD ONE (23:45)
[2021-05-07] MEDS ORDERED: ONDANSETRON 4 MG/2 ML (SDV) Z0FRAN IVP ONE (23:45)
[2021-05-07 23:49] LABS: BASOPHILS # (AUTO) 0.1 10^3/uL (0.0-0.1); BASOPHILS % (AUTO) 1 % (0-10); EOSINOPHILS # (AUTO) 0.2 10^3/uL (0.0-0.3); EOSINOPHILS % (AUTO) 1 % (0-10); HEMATOCRIT 40 % (35-52); HEMOGLOBIN 13.3 g/dL (11.5-16.0); LYMPHOCYTES # (AUTO) 4.8 10^3/uL (1.0-4.0); LYMPHOCYTES % (AUTO) 31 % (12-44); MEAN CORPUSCULAR HEMOGLOBIN 31 pg (25-34); MEAN CORPUSCULAR HGB CONC 34 g/dL (32-36); MEAN CORPUSCULAR VOLUME 93 fL (80-99); MEAN PLATELET VOLUME 10.8 fL (9.0-12.2); MONOCYTES # (AUTO) 0.9 10^3/uL (0.0-1.0); MONOCYTES % (AUTO) 6 % (0-12); NEUTROPHILS # (AUTO) 9.2 10^3/uL (1.8-7.8); NEUTROPHILS % (AUTO) 60 % (42-75); PLATELET COUNT 297 10^3/uL (130-400); WHITE BLOOD COUNT 15.4 10^3/uL (4.3-11.0)
[2021-05-07 23:58] LABS: ALBUMIN 4.5 GM/DL (3.2-4.5); CHLORIDE 107 MMOL/L (98-107); POTASSIUM 3.2 MMOL/L (3.6-5.0); SODIUM 141 MMOL/L (135-145)
[2021-05-07 23:59] LABS: CALCIUM 9.1 MG/DL (8.5-10.1)
[2021-05-08] VITALS (8 sets, daily range): BP systolic 102–126; BP diastolic 58–81
[2021-05-08] LABS: AMYLASE 130 U/L (25-125)
[2021-05-08 00:01] LABS: GLUCOSE 182 MG/DL (70-105); TOTAL PROTEIN 7.7 GM/DL (6.4-8.2)
[2021-05-08 00:02] LABS: BILIRUBIN,TOTAL 0.2 MG/DL (0.1-1.0); CARBON DIOXIDE 22 MMOL/L (21-32)
[2021-05-08 00:04] LABS: ALKALINE PHOSPHATASE 61 U/L (40-136); CREATININE SERUM 1.03 MG/DL (0.60-1.30); GFR ESTIMATED 54
[2021-05-08 00:05] LABS: BUN/CREATININE RATIO 18
[2021-05-08 00:07] LABS: ALANINE AMINOTRANSFERASE 15 U/L (0-55); MAGNESIUM 2.3 MG/DL (1.6-2.4)
[2021-05-08 00:08] LABS: BAND NEUTROPHILS 5 %; NEUTROPHILS % (MANUAL) 59 %
[2021-05-08 00:09] LABS: CREATINE KINASE 100 U/L (29-168); EOSINOPHILS % (MANUAL) 2 %; LIPASE 41 U/L (8-78); LYMPHOCYTES % (MANUAL) 23 %; MONOCYTES % (MANUAL) 11 %; RBC MORPH NORMAL
[2021-05-08 00:16] LABS: ERYTHROCYTE SEDIMENTATION RATE 16 MM/HR (0-30)
[2021-05-08 01:03] LABS: TSH (THYROID ANALYZER) 366.57 UIU/ML (0.35-4.94)
[2021-05-08] MEDS ORDERED: LACTATED RINGERS 1,000 ML IV ONE (01:15)
[2021-05-08 01:34] LABS: FREE T4 (FREE THYROXINE) 0.43 NG/DL (0.70-1.48)
--- NOTE | 2021-05-08 02:07 | ED General ---
General Chief Complaint: Dizziness/Syncope Stated Complaint: SEVERE HYPOTHYROIDISM;INTRACTABLE DIZZINESS;N/V Nursing Triage Note: dizzy/n/v Source of Information: Patient, EMS History of Present Illness Date Seen by Provider: May 07, 2021 Time Seen by Provider: 23:30 Initial Comments PT ARRIVES VIA EMS FROM HOME PT HAS BEEN IN [place] ALL DAY--IN HE[place] ALOT OF THE TIME--WAS AT THE [employer], [place], OTHER PLACES WHEN SHE GOT HOME TONIGHT, SHE BEGAN HAVING SEVERE DIZZINESS AND NAUSEA/VOMITING EMS GAVE ZOFRAN 4 MG PRIOR TO ARRIVAL AND HUNG IV FLUIDS PT DENIES HEADACHE DOES NOT KNOW IF HER VISION IS BLURRY OR NOT--KEEPS EYES CLOSED, STATES SHE GETS MORE DIZZY IF SHE OPENS HER EYES HAS VOMITED UNKNOWN NUMBER OF TIMES NO DIARRHEA NO ABDOMINAL PAIN NO FEVER NO CHEST PAIN NO PALPITATIONS NO SYNCOPE NO PARESTHESIAS OR MOTOR DEFICITS NO SWELLING ANYWHERE NO SHORTNESS OF BREATH NO COUGH NO SORE THROAT NO LOSS OF TASTE OR SMELL NO ONE AT HOME IS ILL PT HAS HAD BOTH MODERNA COVID-19 VACCINES--LAST ONE 01/14/21 PT HAS HISTORY OF HYPOTHYROIDISM, BUT ADMITS TO NOT TAKING HER MEDICATION-- CLAIMS "I JUST KEEP FORGETTING TO TAKE IT" --DOES NOT RECALL HOW LONG IT HAS BEEN SINCE SHE HAS TAKEN IT. ADDITIONALLY, PT HAS NOT SEEN HER PCP FOR A LONG TIME, THEREFORE HAS NOT HAD ANY LAB WORK DONE IN A LONG TIME PT WAS ADMITTED IN 2019 FOR SEVERE HYPOTHYROIDISM DUE TO NON-COMPLIANCE. NO HISTORY OF MYXEDEMA / COMA PCP: DR. PETIT Allergies and Home Medications Allergies Coded Allergies: Penicillins (Verified Allergy, Unknown, 08/28/17) Sulfa (Sulfonamide Antibiotics) (Verified Allergy, Unknown, 05/07/21) codeine (Verified Allergy, Unknown, 08/28/17) morphine (Verified Allergy, Unknown, 08/28/17) Home Medications Acetaminophen 500 Mg Tablet, 1,000 MG PO HS, (Reported) take 2 (500mg) tabs Cholecalciferol (Vitamin D3) 5,000 Unit Tablet, 5,000 UNIT PO HS Prescribed by: MARCELA PETIT on 11/20/18 1219 Levothyroxine Sodium 100 Mcg Tablet, 100 MCG PO DAILY@0630 Prescribed by: MARCELA PETIT on 11/20/18 1219 Tramadol HCl 50 Mg Tablet, 50-100 MG PO q4-6 hours, (Reported) take 1-2 (50mg) tabs Patient Home Medication List Home Medication List Reviewed: Yes Review of Systems Review of Systems Constitutional: see HPI, dizziness; No fever; weakness EENTM: see HPI Respiratory: no symptoms reported; No cough, No short of breath Cardiovascular: no symptoms reported; No chest pain, No edema, No palpitations, No syncope, No vascular heart diseas Gastrointestinal: see HPI; No abdominal pain, No diarrhea; nausea, vomiting Genitourinary: no symptoms reported Musculoskeletal: no symptoms reported Skin: no symptoms reported Psychiatric/Neurological: See HPI (DIZZINESS); Denies Headache, Denies Numbness, Denies Paresthesia, Denies Seizure, Denies Tingling, Denies Weakness Hematologic/Lymphatic: No Symptoms Reported Immunological/Allergic: no symptoms reported Past Ngqtqwx-Shqgwm-Sozoag Hx Patient Social History Tobacco Use?: Yes (SMOKED < 1 PPD, QUIT 2017) Tobacco type used: Cigarettes Smoking Status: Former Smoker Use of E-Cig and/or Vaping dev: No Substance use?: No Alcohol Use?: Yes Alcohol Frequency: Rarely Pt feels they are or have been: No Immunizations Up To Date First/Initial COVID19 Vaccinat: 02/03 Second COVID19 Vaccination Adam: 03/05 Seasonal Allergies Seasonal Allergies: No Past Medical History Surgery/Hospitalization HX: COLONOSCOPY/POLYPECTOMY Surgeries: Yes Section, Hysterectomy Respiratory: No Cardiac: No Neurological: No 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 0.0oz. 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 Norm as Tested Skin: Warm/Dry, Pallor; No Rash Progress/Results/Core Measures Suspected Sepsis SIRS Temperature: Pulse: 86 Respiratory Rate: 16 Laboratory Tests 05/07/21 23:39: White Blood Count 15.4H Blood Pressure 113 /75 Mean: 89 Laboratory Tests 05/07/21 23:39: Creatinine 1.03, Platelet Count 297, Total Bilirubin 0.2 Results/Orders Lab Results Laboratory Tests Test 05/07/21 23:39 05/07/21 23:50 Range/Units White Blood Count 15.4 H 4.3-11.0 10^3/uL Red Blood Count 4.27 3.80-5.11 10^6/uL Hemoglobin 13.3 11.5-16.0 g/dL Hematocrit 40 35-52 % Mean Corpuscular Volume 93 80-99 fL Mean Corpuscular Hemoglobin 31 25-34 pg Mean Corpuscular Hemoglobin Concent 34 32-36 g/dL Red Cell Distribution Width 13.8 10.0-14.5 % Platelet Count 297 130-400 10^3/uL Mean Platelet Volume 10.8 9.0-12.2 fL Immature Granulocyte % (Auto) 2 % Neutrophils (%) (Auto) 60 42-75 % Lymphocytes (%) (Auto) 31 12-44 % Monocytes (%) (Auto) 6 0-12 % Eosinophils (%) (Auto) 1 0-10 % Basophils (%) (Auto) 1 0-10 % Neutrophils # (Auto) 9.2 H 1.8-7.8 10^3/uL Lymphocytes # (Auto) 4.8 H 1.0-4.0 10^3/uL Monocytes # (Auto) 0.9 0.0-1.0 10^3/uL Eosinophils # (Auto) 0.2 0.0-0.3 10^3/uL Basophils # (Auto) 0.1 0.0-0.1 10^3/uL Immature Granulocyte # (Auto) 0.3 H 0.0-0.1 10^3/uL Neutrophils % (Manual) 59 % Lymphocytes % (Manual) 23 % Monocytes % (Manual) 11 % Eosinophils % (Manual) 2 % Band Neutrophils 5 % Blood Morphology Comment NORMAL Erythrocyte Sedimentation Rate 16 0-30 MM/HR Sodium Level 141 135-145 MMOL/L Potassium Level 3.2 L 3.6-5.0 MMOL/L Chloride Level 107 98-107 MMOL/L Carbon Dioxide Level 22 21-32 MMOL/L Anion Gap 12 5-14 MMOL/L Blood Urea Nitrogen 19 H 7-18 MG/DL Creatinine 1.03 0.60-1.30 MG/DL Estimat Glomerular Filtration Rate 54 BUN/Creatinine Ratio 18 Glucose Level 182 H 70-105 MG/DL Calcium Level 9.1 8.5-10.1 MG/DL Corrected Calcium 8.7 8.5-10.1 MG/DL Magnesium Level 2.3 1.6-2.4 MG/DL Total Bilirubin 0.2 0.1-1.0 MG/DL Aspartate Amino Transf (AST/SGOT) 15 5-34 U/L Alanine Aminotransferase (ALT/SGPT) 15 0-55 U/L Alkaline Phosphatase 61 40-136 U/L Total Creatine Kinase 100 29-168 U/L Creatine Kinase MB 1.0 <6.6 NG/ML Myoglobin 89.4 10.0-92.0 NG/ML Troponin I < 0.028 <0.028 NG/ML C-Reactive Protein High Sensitivity 0.44 0.00-0.50 MG/DL Total Protein 7.7 6.4-8.2 GM/DL Albumin 4.5 3.2-4.5 GM/DL Amylase Level 130 H 25-125 U/L Lipase 41 8-78 U/L Procalcitonin 0.02 <0.10 NG/ML Free Thyroxine 0.43 L 0.70-1.48 NG/DL TSH [place] Testing 366.57 H 0.35-4.94 UIU/ML Serum Alcohol < 10 <10 MG/DL SARS-CoV-2 RNA (RT-PCR) Not Detected Not Detecte My Orders Orders - AYDEN MITCHELL DO Ed Iv/Invasive Line Start (05/07/21 23:36) Ekg Tracing (05/07/21 23:36) Monitor-Rhythm Ecg Trace Only (05/07/21 23:36) Alcohol (05/07/21 23:36) Amylase (05/07/21 23:36) Cbc With Automated Diff (05/07/21 23:36) Comprehensive Metabolic Panel (05/07/21 23:36) Creatine Kinase (05/07/21 23:36) Creatine Kinase Mb (05/07/21 23:36) Drug Screen Stat (Urine) (05/07/21 23:36) Lipase (05/07/21 23:36) Magnesium (05/07/21 23:36) Ua Culture If Indicated (05/07/21:36) Myoglobin Serum (05/07/21 23:36) Troponin I (05/07/21 23:36) Procalcitonin (Pct) (05/07/21 23:36) Hs C Reactive Protein (05/07/21 23:36) Erythrocyte Sedimentation Rate (05/07/21 23:36) Covid 19 Inhouse Test (05/07/21 23:36) Scopolamine Patch (Transderm-Scop Patch) (05/07/21 23:45) Ondansetron Injection (Zofran Injectio (05/07/21 23:45) Thyroid Analyzer (05/07/21 23:48) Manual Differential (05/07/21 23:39) Ct Head Wo-R/O Stroke (05/08/21 00:05) Free T4 (Free Thyroxine) (05/07/21 23:39) Ed Iv/Invasive Line Start (05/08/21 01:04) Lactated Ringers (Lr 1000 Ml Iv Solution (05/08/21 01:15) Medications Given in ED Current Medications Medications Dose Ordered Sig/Kate Route Start Time Stop Time Status Last Admin Dose Admin Ondansetron HCl 8 mg ONCE ONCE IVP 05/07/21 23:45 05/07/21 23:46 DC 05/07/21 23:49 8 MG Scopolamine 1.5 mg ONCE ONCE TD 05/07/21 23:45 05/07/21 23:46 DC 05/07/21 23:49 1.5 MG Vital Signs/I&O 05/07/21 23:35 Temp 35.5 Pulse 74 Resp 16 B/P (MAP) 121/73 (89) Pulse Ox 97 O2 Delivery Room Air 05/08/21 00:00 Intake Total 100 ml Balance 100 ml Capillary Refill : Less Than 3 Seconds Blood Pressure Mean: 89 Progress Note : Progress Note GIVEN IV FLUIDS, ZOFRAN AND SCOPOLAMINE PATCH NAUSEA AND DIZZINESS IMPROVED UNABLE TO VOID IN ER, ADDITIONAL FLUIDS ORDERED NO DETERIORATION IN PT'S CONDITION DURING ER STAY ECG Initial ECG Impression Date: May 07, 2021 Initial ECG Impression Time: 23:44 Initial ECG Rate: 71 Initial ECG Rhythm: Normal Sinus Diagnostic Imaging Comments CT HEAD--NO ACUTE PROCESS, PER [facility] VIA FAX AT 0051 Reviewed: Reviewed by Me Departure Communication (Admissions) [id number]--SPOKE WITH DR. JOCELYNN LOPEZ, INTERIOR PAINTER FOR DR. PETIT. ACCEPTS PT FOR ADMIT Impression Primary Impression: Severe hypothyroidism Additional Impressions: INTRACTABLE DIZZINESS Intractable nausea and vomiting Non-compliance Hypokalemia Disposition: ADMITTED INPATIENT Condition: Stable Admissions Decision to Admit Reason: Admit from ER (General) Decision to Admit/Date: May 08, 2021 Time/Decision to Admit Time: 01:10 Departure-Patient Inst. Referrals: MARCELA PETIT DO (PCP) Primary Care Physician AYDEN MITCHELL DO May 08, 2021 02:07
[2021-05-08] MEDS: D5 1/2 NS W/KCL 20 MEQ/L 1,000 ML IV ONE ×2 (02:44→02:49)
[2021-05-08] MEDS ORDERED: ONDANSETRON 4 MG/2 ML (SDV) Z0FRAN IV PRN (02:45)
[2021-05-08] MEDS ORDERED: ACETAMINOPHEN 500 MG TAB (TYLENOL) PO PRN (02:45)
[2021-05-08] MEDS: D5 1/2 NS W/KCL 20 MEQ/L 1,000 ML IV SCH ×4 (02:48→23:31)
[2021-05-08] MEDS ORDERED: LEVOTHYROXINE 100 MCG INJ (SYNTHROID) VIAL IV ONE (04:00)
[2021-05-08 04:07] LABS: BILIRUBIN,URINE NEGATIVE (NEGATIVE); CLARITY,URINE CLEAR; COLOR,URINE YELLOW; GLUCOSE, URINE (UA) NEGATIVE (NEGATIVE); KETONES,URINE NEGATIVE (NEGATIVE); LEUKOCYTE ESTERASE ,URINE TRACE (NEGATIVE); NITRITE,URINE NEGATIVE (NEGATIVE); PROTEIN,URINE NEGATIVE (NEGATIVE)
[2021-05-08 04:17] LABS: AMPHETAMINE SCREEN, URINE NEGATIVE (NEGATIVE); BARBITURATE SCREEN URINE NEGATIVE (NEGATIVE); BENZODIAZEPINES SCREEN URINE NEGATIVE (NEGATIVE); CANNABINOID SCREEN, URINE NEGATIVE (NEGATIVE); COCAINE SCREEN URINE NEGATIVE (NEGATIVE); METHADONE STAT NEGATIVE (NEGATIVE); METHAMPHETAMINE SCREEN URINE S NEGATIVE (NEGATIVE); OPIATE SCREEN URINE NEGATIVE (NEGATIVE); OXYCODONE STAT NEGATIVE (NEGATIVE); PROPOXYPHENE STAT NEGATIVE (NEGATIVE); TRICYCLIC ANTIDEPRESSANTS SCRE NEGATIVE (NEGATIVE)
[2021-05-08 04:18] LABS: BACTERIA,URINE NEGATIVE /HPF; SQUAMOUS EPITHELIAL CELL,UR RARE /HPF
[2021-05-08 06:10] LABS: BASOPHILS % (AUTO) 0 % (0-10); EOSINOPHILS % (AUTO) 0 % (0-10); HEMATOCRIT 38 % (35-52); HEMOGLOBIN 12.7 g/dL (11.5-16.0); LYMPHOCYTES # (AUTO) 1.7 10^3/uL (1.0-4.0); LYMPHOCYTES % (AUTO) 10 % (12-44); MEAN CORPUSCULAR HEMOGLOBIN 31 pg (25-34); MEAN CORPUSCULAR HGB CONC 33 g/dL (32-36); MEAN CORPUSCULAR VOLUME 93 fL (80-99); MEAN PLATELET VOLUME 10.8 fL (9.0-12.2); MONOCYTES # (AUTO) 0.6 10^3/uL (0.0-1.0); MONOCYTES % (AUTO) 4 % (0-12); NEUTROPHILS # (AUTO) 14.1 10^3/uL (1.8-7.8); NEUTROPHILS % (AUTO) 85 % (42-75); PLATELET COUNT 265 10^3/uL (130-400); WHITE BLOOD COUNT 16.5 10^3/uL (4.3-11.0)
[2021-05-08 06:23] LABS: CALCIUM 8.7 MG/DL (8.5-10.1)
[2021-05-08 06:28] LABS: CREATININE SERUM 0.83 MG/DL (0.60-1.30)
--- NOTE | 2021-05-08 07:31 | Diagnostic Imaging Report ---
PROCEDURE: CT head wo r/o stroke. TECHNIQUE: Multiple contiguous axial images were obtained through the brain without the use of intravenous contrast. Auto Exposure Controls were utilized during the CT exam to meet ALARA standards for radiation dose reduction. INDICATION: Neurological deficits. Evaluate for heat stroke. FINDINGS: There are no CT findings of an acute intracranial abnormality. There is no evidence of intracranial hemorrhage. There is no intracranial mass effect or shift. There is no hydrocephalus. There is no abnormal extra-axial fluid collection. The basilar cisterns are patent. Morales-white matter differentiation appear well-maintained. There are no findings of vasogenic edema. The posterior fossa is unremarkable. The mastoid air cells are clear. The visualized paranasal sinuses clear. Orbital contents unremarkable. There is no acute calvarial abnormality. IMPRESSION: 1. No CT evidence of an acute intracranial abnormality. 2. I agree with the preliminary [facility] report. Dictated by: Dictated on workstation # [id number]
[2021-05-08] MEDS: IBUPROFEN 800 MG (MOTRIN) TAB PO PRN ×2 (07:52→16:48)
--- NOTE | 2021-05-08 11:06 | History & Physical ---
History of Present Illness History of Present Illness Reason for visit/HPI 61 yo F admitted for nausea vomiting found to have severe hypothyroidism similar to her 2019 admission. She reports she keeps forgetting to take her thyroid medication. She was in [place] all day yesterday and likely became dehydrated. She is feeling a little better. Spoke with son over the phone and he reports he had to carry her because she was so weak. Patient also has constipation and would like some relief. She is always cold and sleeps a lot. She does have 2 jobs. Date of Admission May 08, 2021 at 01:10 Date Seen by a Provider: May 08, 2021 Time Seen by a Provider: 12:00 I consulted on this patient on 05/08/21 11:00 Attending Physician Wayne Lopez MD Admitting Physician Marcela Petit DO Consult Allergies and Home Medications Allergies Coded Allergies: Penicillins (Verified Allergy, Unknown, 08/28/17) Sulfa (Sulfonamide Antibiotics) (Verified Allergy, Unknown, 05/07/21) codeine (Verified Allergy, Unknown, 08/28/17) morphine (Verified Allergy, Unknown, 08/28/17) Home Medications Acetaminophen 500 Mg Tablet, 1,000 MG PO HS, (Reported) take 2 (500mg) tabs Cholecalciferol (Vitamin D3) 5,000 Unit Tablet, 5,000 UNIT PO HS Prescribed by: MARCELA PETIT on 11/20/18 1219 Levothyroxine Sodium 100 Mcg Tablet, 100 MCG PO DAILY@0630 Prescribed by: MARCELA PETIT on 11/20/18 1219 Tramadol HCl 50 Mg Tablet, 50-100 MG PO q4-6 hours, (Reported) take 1-2 (50mg) tabs Patient Home Medication List Home Medication List Reviewed: Yes Past Wizljdl-Augmpy-Kkqrgr Hx Patient Social History Tobacco Use?: Yes (SMOKED < 1 PPD, QUIT 2017) Tobacco type used: Cigarettes Smoking Status: Former Smoker Use of E-Cig and/or Vaping dev: No Substance use?: No Alcohol Use?: Yes Alcohol Frequency: Rarely Pt feels they are or have been: No Immunizations Up To Date Date of Influenza Vaccine: Jul 16, 2014 First/Initial COVID19 Vaccinat: 02/03 Second COVID19 Vaccination Adam: 03/05 Tetanus Booster (TDap): Unknown Seasonal Allergies Seasonal Allergies: No Current Status status: No Advance Directives: No Communicates: Verbally Primary Language: Cymraes Preferred Spoken Language: Cymraes Is interpretation needed?: No Implanted or Applied Medical D: None Past Medical History 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, 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, 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 Hemorrhoids, Polyps, Irritable Bowel Hypothyroidsim Blood Disorders: No Family Medical History No Pertinent Family Hx Review of Systems Review of Systems General: No Chills, No Night Sweats HEENT: No Head Aches Pulmonary: No Dyspnea, No Cough Cardiovascular: No: Chest Pain, Palpitations Gastrointestinal: Nausea, Vomiting; No: Abdominal Pain Genitourinary: No Dysuria Neurological: Weakness Physical Exam Vital Signs Vital Signs - First Documented 05/07/21 23:35 Temp 35.5 Pulse 74 Resp 16 B/P (MAP) 121/73 (89) Pulse Ox 97 O2 Delivery Room Air Capillary Refill : Less Than 3 Seconds Height, Weight, BMI Height: 5'2.00" Weight: 148lbs. 0.0oz. 67.007316ml; 31.64 BMI Method:Stated General Appearance: No Apparent Distress HEENT: PERRL/EOMI Neck: Non Tender, Supple Respiratory: Chest Non Tender, Lungs Clear, Normal Breath Sounds Cardiovascular: Regular Rate, Rhythm Gastrointestinal: Non Tender, Soft Rectal: Deferred Extremity: Non Tender, No Calf Tenderness Neurologic/Psychiatric: Alert, Oriented x3 Skin: Warm/Dry Assessment/Plan Assessment/Plan Admission Dx severe hypothyroidism. Admission Status: Inpatient Order (span 2 midnights) Reason for Inpatient Admission: admitted with multiple issues- will monitor her with a loading dose of levothyroxine. Possibly could d/c to home tomorrow. But will reassess. Possibly Monday. Assessment and Plan admitted 05/08/21- loading dose of 300mcg given IV. -Potassium level back up to 4 with IVF w/ potassium -scopolamine patch and zofran ordered for n/v. -add bowel regimen. Dispo: will monitor today and tomorrow- possible discharge to home if she is better on 05/09/21 Problems: (1) Severe hypothyroidism (2) Intractable nausea and vomiting (3) Hypokalemia (4) Dizziness (5) Constipation Qualifiers: Qualified Codes: K59.00 - Constipation, unspecified WAYNE LOPEZ MD May 08, 2021 11:06
[2021-05-08] MEDS: DOCUSATE SODIUM 100 MG (COLACE) CAP PO SCH ×2 (16:51→19:51)
[2021-05-08] MEDS: polyethylene glycoL POWDER 17 GM (MIRALAX) PACK PO SCH (16:51)
[2021-05-09 04:35] VITALS: BP 106/62
[2021-05-09] MEDS: D5 1/2 NS W/KCL 20 MEQ/L 1,000 ML IV SCH ×3 (05:56→18:54)
[2021-05-09 08:00] VITALS: BP 104/68
[2021-05-09] MEDS ORDERED: LEVOTHYROXINE 100 MCG INJ (SYNTHROID) VIAL IV SCH (09:00)
[2021-05-09] MEDS: DOCUSATE SODIUM 100 MG (COLACE) CAP PO SCH ×2 (09:25→21:51)
[2021-05-09] MEDS: polyethylene glycoL POWDER 17 GM (MIRALAX) PACK PO SCH (09:25)
[2021-05-09 11:20] VITALS: BP 115/62
--- NOTE | 2021-05-09 14:04 | Progress Note ---
Subjective Subjective Date Seen by Provider: May 09, 2021 Time Seen by Provider: 10:45 No overnight events. She is a little better. Still feels a little dizziness with ambulating to the bathroom. She had a bowel movement yesterday and declined any miralax. She did eat a heavier breakfast this am with a little nausea. No vomiting Review of Systems General: No Chills, No Night Sweats HEENT: No Head Aches Pulmonary: No Dyspnea, No Cough Cardiovascular: No: Chest Pain, Palpitations Gastrointestinal: Nausea; No: Vomiting, Abdominal Pain Genitourinary: No Dysuria Neurological: Weakness Objective Exam Vital Signs Vital Signs Date Time Temp Pulse Resp B/P (MAP) Pulse Ox O2 Delivery O2 Flow Rate FiO2 05/09/21 12:53 72 05/09/21 11:20 37.0 76 18 115/62 (79) 92 Room Air 05/09/21 08:32 Room Air 05/09/21 08:00 37.3 78 18 104/68 (80) 96 Room Air 05/09/21 07:00 68 05/09/21 04:35 36.8 74 20 106/62 (77) 96 Room Air 05/08/21 23:19 37.1 70 18 102/58 (73) 97 Room Air 05/08/21 21:04 79 05/08/21 20:19 37.1 64 20 126/81 (96) 96 Room Air 05/08/21 19:50 Room Air 05/08/21 16:00 37.1 70 22 112/72 (85) 93 Room Air I & O 05/09/21 07:00 Intake Total 2950 ml Output Total 2450 ml Balance 500 ml General Appearance: No Apparent Distress HEENT: PERRL/EOMI Neck: Non Tender, Supple Respiratory: Chest Non Tender, Lungs Clear, Normal Breath Sounds Cardiovascular: Regular Rate, Rhythm Gastrointestinal: Non Tender, Soft Rectal: Deferred Back: No CVA Tenderness Extremity: Non Tender, No Calf Tenderness Neurologic/Psychiatric: Alert, Oriented x3 Skin: Warm/Dry Assessment/Plan Assessment/Plan Admission Dx severe hypothyroidism. Assessment and Plan admitted 05/08/21- loading dose of 300mcg given IV. -Potassium level back up to 4 with IVF w/ potassium -scopolamine patch and zofran ordered for n/v. -add bowel regimen. 05/09/21- doing better. will start po levothyroxine tomorrow. Bowels have opened up without any miralax. recheck cbc tomorrow to make sure wbc have started to trend down. Dispo: should be able to go home tomorrow 05/10/21- Problems: (1) Severe hypothyroidism (2) Intractable nausea and vomiting (3) Hypokalemia (4) Dizziness (5) Constipation Qualifiers: Qualified Codes: K59.00 - Constipation, unspecified Admission Dx severe hypothyroidism. Clinical Quality Measures Admission Status Admission Dx severe hypothyroidism. JOCELYNN LOPEZ MD May 09, 2021 14:04
[2021-05-09 16:00] VITALS: BP 119/60
[2021-05-09] MEDS: IBUPROFEN 800 MG (MOTRIN) TAB PO PRN (17:37)
[2021-05-09 20:01] VITALS: BP 113/63
[2021-05-10 00:08] VITALS: BP 110/70
[2021-05-10] MEDS: D5 1/2 NS W/KCL 20 MEQ/L 1,000 ML IV SCH ×2 (02:24→08:41)
[2021-05-10 03:08] VITALS: BP 108/62
[2021-05-10] MEDS: IBUPROFEN 800 MG (MOTRIN) TAB PO PRN (05:56)
[2021-05-10] MEDS ORDERED: LEVOTHYROXINE 100 MCG (LEVOTHROID) TAB PO SCH (06:30)
[2021-05-10 07:04] LABS: BASOPHILS # (AUTO) 0.1 10^3/uL (0.0-0.1); BASOPHILS % (AUTO) 1 % (0-10); EOSINOPHILS # (AUTO) 0.2 10^3/uL (0.0-0.3); EOSINOPHILS % (AUTO) 3 % (0-10); HEMATOCRIT 39 % (35-52); HEMOGLOBIN 12.3 g/dL (11.5-16.0); LYMPHOCYTES # (AUTO) 3.1 10^3/uL (1.0-4.0); LYMPHOCYTES % (AUTO) 42 % (12-44); MEAN CORPUSCULAR HEMOGLOBIN 30 pg (25-34); MEAN CORPUSCULAR HGB CONC 32 g/dL (32-36); MEAN CORPUSCULAR VOLUME 95 fL (80-99); MEAN PLATELET VOLUME 10.8 fL (9.0-12.2); MONOCYTES # (AUTO) 0.5 10^3/uL (0.0-1.0); MONOCYTES % (AUTO) 6 % (0-12); NEUTROPHILS # (AUTO) 3.4 10^3/uL (1.8-7.8); NEUTROPHILS % (AUTO) 47 % (42-75); PLATELET COUNT 259 10^3/uL (130-400); WHITE BLOOD COUNT 7.3 10^3/uL (4.3-11.0)
[2021-05-10 08:43] VITALS: BP 129/78
[2021-05-10] MEDS: DOCUSATE SODIUM 100 MG (COLACE) CAP PO SCH (08:44)
[2021-05-10] MEDS: polyethylene glycoL POWDER 17 GM (MIRALAX) PACK PO SCH (08:44)
[2021-05-10] MEDS ORDERED: POLY17PO6 PO (09:27)
[2021-05-10] MEDS ORDERED: IBUP-2473 PO (09:27)
[2021-05-10] MEDS ORDERED: ASPI-789 PO (09:27)
[2021-05-10] MEDS ORDERED: FLUT9.9S NSEACH (09:27)
[2021-05-10] MEDS ORDERED: DOCU100T7 PO (09:27)
[2021-05-10] MEDS ORDERED: PANT40TA52 PO (09:27)
[2021-05-10] MEDS ORDERED: DIPH28.33 TP (09:27)
[2021-05-10] MEDS ORDERED: CALC10009 PO (09:27)
[2021-05-10] MEDS ORDERED: LEVO125C4 PO (10:01)
[2021-05-10] MEDS ORDERED: MECL-149 PO (10:02)
[2021-05-10] MEDS ORDERED: ONDA4TAB11 PO (10:03)
--- NOTE | 2021-05-10 10:04 | Discharge Inst-Simple/Standard ---
Discharge Inst-Standard Reconcile Patient Problems Problems Reviewed?: Yes Discharge Medications New, Converted or Re-Newed RX: Transmitted to Pharmacy Patient Instructions/Follow Up Plan of Care/Instructions/FU: Fwup with me in 1 week Activity as Tolerated: Yes Discharge Diet: Cardiac Diet MARCELA PETIT DO May 10, 2021 10:04
[2021-05-10] MEDS ORDERED: SCOPOLAMINE 1.5 MG (TRANSDERM-SCOP) PATCH ONE (12:01)
--- NOTE | 2021-05-10 16:52 | Discharge Summary ---
Diagnosis/Chief Complaint Date of Admission May 08, 2021 at 01:10 Date of Discharge May 10, 2021 at 12:15 Discharge Date: May 10, 2021 Discharge Diagnosis 1. Severe Hypothyroidism with Noncompliance with Medication 2. Acute Vertigo 3. Heat Exhaustion 4. Hypokalemia 5.. Nausea and Vomiting 6. Constipation Discharge Summary Hospital Course Was the Problem List Reviewed?: Yes Hospital Course This is a 61 year old female with a history of noncompliance with taking her th yroid medication. She was in [place] at [facility] pushing her around in a wheelchair and did get overheated. She returned home that night and started having severe vertigo with intractable nausea and vomiting. She was brought to the emergency room where she was found to have severe hypothyroidism with a TSH of 366.57 as well as hypokalemia with a potassium of 3.2 and elevated WBC count. She was admitted for IVFs as well as IV levothyroxine. She was given a loading dose of levothyroxine 300mcg on admit and then given levothyroxine 100mcg the following day and was switched to oral levothyroxine 100mcg the following day. Her potassium was corrected and was 4.0 by discharge. Her WBC count came back to normal with rehydration from 15.4 on admit to 7.3 on discharge. A scopolamine patch was placed on admit which has helped her vertigo. It was once again discussed with the patient how important taking her thyroid meds routinely is. She will be discharged home on oral levothyroxine at 125mcg which was her previous dose. I will see her in [place] in 1 week. Labs Laboratory Tests 05/07/21 23:39: White Blood Count 15.4H, Neutrophils # (Auto) 9.2H, Lymphocytes # (Auto) 4.8H, Immature Granulocyte # (Auto) 0.3H, Potassium Level 3.2L, Blood Urea Nitrogen 19H, Glucose Level 182H, Amylase Level 130H, Free Thyroxine 0.43L, TSH [place] Testing 366.57H 05/07/21 23:50: 05/08/21 03:54: Urine Specific [place] 1.025H, Urine Leukocyte Esterase TRACEH 05/08/21 05:58: White Blood Count 16.5H, Neutrophils # (Auto) 14.1H, Glucose Level 137H, Neutrophils (%) (Auto) 85H, Lymphocytes (%) (Auto) 10L, Chloride Level 109H 05/10/21 06:40: Procedures None. Discharge Physical Examination Allergies: Coded Allergies: Penicillins (Verified Allergy, Unknown, 08/28/17) Sulfa (Sulfonamide Antibiotics) (Verified Allergy, Unknown, 05/07/21) codeine (Verified Allergy, Unknown, 08/28/17) morphine (Verified Allergy, Unknown, 08/28/17) Vitals & I&Os Vital Signs Date Time Temp Pulse Resp B/P (MAP) Pulse Ox O2 Delivery O2 Flow Rate FiO2 05/10/21 08:43 37.1 80 20 129/78 (95) 95 Room Air General Appearance: Alert, Oriented X3, No Acute Distress Respiratory: Clear to Auscultation Cardiovascular: Regular Rate Abdominal: Normal Bowel Sounds, Soft, No Tenderness Extremities: No Clubbing, No Cyanosis, No Edema Psych/Mental Status: Mental Status NL, Mood NL Discharge Home Medications Reviewed and agree with Discharge Medication list on patient's Discharge Instruction sheet Instructions to Patient/Family Please see electronic discharge instructions given to patient. MARCELA PTEIT DO May 10, 2021 16:52
[2021-05-10] MEDS ORDERED: SCOPOLAMINE 1.5 MG (TRANSDERM-SCOP) PATCH TD SCH (21:00)
== END 2021-05-10 12:15 | disposition home or self-care (01) | DRG 645 ==
LOC: EDUNIT# 23:35 → ER 23:37 → 4TH 05-08 01:10
PROVIDERS: ADMIT Family Medicine; ATTEND Family Medicine
DX: E03.9 Hypothyroidism, unspecified (principal); E86.0 Dehydration; T67.5XXA Heat exhaustion, unspecified, initial encounter; E87.6 Hypokalemia; K59.00 Constipation, unspecified; R42 Dizziness and giddiness; R11.2 Nausea with vomiting, unspecified; Z91.14 Patient's other noncompliance with medication regimen
CPT/HCPCS: 36415; 70450; 80048; 80053; 80306; 80320; 81000; 82150; 82550; 82553; 83690; 83735; 83874; 84145; 84439; 84443; 84484; 85007; 85025; 85027; 85652; 86141; 87636; 93005; 93041; 96374

== ENCOUNTER → 2021-05-25 | Outpatient (CLI) | payer BC ==
[~2021-05-25] MED LIST changes: +ASPI-789 PO; +CALC10009 PO; +DIPH28.33 TP; +DOCU100T7 PO; +FLUT9.9S NSEACH; +IBUP-2473 PO; +LEVO125C4 PO; +MECL-149 PO; +ONDA4TAB11 PO; +PANT40TA52 PO; +POLY17PO6 PO
--- NOTE | 2021-05-25 16:12 | Diagnostic Imaging Report ---
PROCEDURE: MRI lumbar spine. TECHNIQUE: Multiplanar, multisequence MRI of the lumbar spine was performed without contrast. INDICATION: Low back pain. COMPARISON: Lumbar spine MRI of 05/07/2019. FINDINGS: Normal alignment of the lumbar spine. No fracture or marrow replacing process. No sacral insufficiency fracture. Facet osteoarthritis at L4-L5 has a similar appearance with a small amount of synovial fluid and synovial cysts associated with the osteoarthritis. Distal thoracic cord is normal in appearance. No clumping of the intrathecal nerve roots. Paravertebral and psoas muscles are normal, where visualized. L1-L2: No spinal canal or foraminal narrowing. L2-L3: No spinal canal or foraminal narrowing. L3-L4: No spinal canal or foraminal narrowing. L4-L5: Facet osteoarthritis is unchanged. Minimal disc bulging. No change in the mild foraminal narrowing and there is no spinal stenosis. L5-S1: Facet osteoarthritis on the left is again noted and mild in severity. No spinal canal or foraminal narrowing. IMPRESSION: 1. Examination is stable when compared with a lumbar spine MRI of 05/07/2019. There are no sites of high-grade spinal canal or foraminal narrowing. 2. Focally advanced facet osteoarthritis at L4-L5 may remain a source of local pain. Dictated by: Dictated on workstation # [id number]
== END ==
LOC: RAD 11:00
PROVIDERS: ATTEND Family Medicine
DX: M47.26 Other spondylosis with radiculopathy, lumbar region (principal)
CPT/HCPCS: 72148

== ENCOUNTER → 2021-10-19 | Outpatient (CLI) | payer BC ==
[~2021-10-19] MED LIST changes: +CYCL10TA25 PO; -CYCL10TA9 PO
--- NOTE | 2021-10-19 12:18 | Diagnostic Imaging Report ---
HAND, LEFT, 3 VIEWS INDICATION: Left hand pain COMPARISON: None available. TECHNIQUE: 3 views of the left hand are obtained FINDINGS: Nonuniform joint space narrowing with undulation and marginal osteophytes are present in the long finger PIP joint. Less advanced degenerative changes are also noted throughout the interphalangeal joints. No osseous erosions. No soft tissue tophi. Moderate degenerative arthritis at the thumb CMC. 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 Dictated by: Dictated on workstation # [id number]
== END ==
LOC: ORTHO 08:42
PROVIDERS: ATTEND Orthopaedic Surgery
DX: M19.042 Primary osteoarthritis, left hand (principal)
CPT/HCPCS: 73130; G0463; 99202

== ENCOUNTER 2022-10-11 09:23 | Outpatient (CLI) | payer BC ==
[~2022-10-11] VITALS: Ht 157.5 cm; Wt 72.1 kg
[~2022-10-11 09:23] MED LIST changes: -ASPI-789 PO; +ASPI1TAB23 PO
[2022-10-13] MEDS ORDERED: FENO90CA2 PO (15:39)
[2022-10-13] MEDS ORDERED: BUPR300T98 PO (15:39)
[2022-10-13] MEDS ORDERED: CELE-63 PO (15:39)
[2022-10-13] MEDS ORDERED: CHOL500061 PO (15:39)
[2022-10-13] MEDS ORDERED: HYDR25SU8 RC (15:39)
[2022-10-13] MEDS ORDERED: CYAN-23 PO (15:39)
== END 2022-10-13 15:43 | disposition home or self-care (01) ==
LOC: PREOP 09:23
PROVIDERS: ATTEND Surgery
DX: Z01.818 Encounter for other preprocedural examination (principal); K62.5 Hemorrhage of anus and rectum

== ENCOUNTER 2022-10-15 14:00 | Emergency (ER) | payer BC ==
[~2022-10-15] VITALS: Ht 157 cm; Wt 73.0 kg
[~2022-10-15 14:00] MED LIST changes: +BUPR300T98 PO; +CELE-63 PO; +CHOL500061 PO; +CYAN-23 PO; +FENO90CA2 PO; +HYDR25SU8 RC
[2022-10-15 14:19] LABS: BASOPHILS # (AUTO) 0.1 10^3/uL (0.0-0.1); BASOPHILS % (AUTO) 1 % (0-10); EOSINOPHILS # (AUTO) 0.2 10^3/uL (0.0-0.3); EOSINOPHILS % (AUTO) 2 % (0-10); HEMATOCRIT 44 % (35-52); HEMOGLOBIN 14.9 g/dL (11.5-16.0); LYMPHOCYTES % (AUTO) 35 % (12-44); MEAN CORPUSCULAR HEMOGLOBIN 30 pg (25-34); MEAN CORPUSCULAR HGB CONC 34 g/dL (32-36); MEAN CORPUSCULAR VOLUME 89 fL (80-99); MEAN PLATELET VOLUME 10.8 fL (9.0-12.2); MONOCYTES # (AUTO) 0.5 10^3/uL (0.0-1.0); MONOCYTES % (AUTO) 6 % (0-12); NEUTROPHILS # (AUTO) 4.8 10^3/uL (1.8-7.8); NEUTROPHILS % (AUTO) 56 % (42-75); PLATELET COUNT 341 10^3/uL (130-400); WHITE BLOOD COUNT 8.5 10^3/uL (4.3-11.0)
[2022-10-15] MEDS ORDERED: ANTACID SUSP 30 ML UDC (MYLANTA) PO ONE (14:30)
[2022-10-15] MEDS ORDERED: LIDOCAINE 2% VISCOUS 15 ML UDC PO ONE (14:30)
[2022-10-15] MEDS ORDERED: ONDANSETRON 4 MG/2 ML (SDV) Z0FRAN IVP ONE (14:30)
--- NOTE | 2022-10-15 14:39 | Diagnostic Imaging Report ---
INDICATION: Chest pain. Comparison is made with prior examination 11/18/2018. FINDINGS: The heart size, mediastinal configuration, and pulmonary vascularity are within normal limits. There is no pleural effusion, pneumothorax, or pneumonia. The osseous structures are unremarkable. IMPRESSION: No acute cardiopulmonary abnormality. Dictated by: Dictated on workstation # [id number]
[2022-10-15 14:43] LABS: INR 0.9 (0.8-1.4); PROTHROMBIN TIME PATIENT 12.1 SEC (12.2-14.7)
[2022-10-15 14:45] LABS: ALBUMIN 4.8 GM/DL (3.2-4.5); CHLORIDE 106 MMOL/L (98-107); POTASSIUM 3.9 MMOL/L (3.6-5.0); SODIUM 142 MMOL/L (135-145)
[2022-10-15 14:46] LABS: CALCIUM 10.6 MG/DL (8.5-10.1)
[2022-10-15 14:47] LABS: GLUCOSE 93 MG/DL (70-105); TOTAL PROTEIN 7.9 GM/DL (6.4-8.2)
[2022-10-15 14:48] LABS: CARBON DIOXIDE 24 MMOL/L (21-32)
[2022-10-15 14:49] LABS: BILIRUBIN,TOTAL 0.3 MG/DL (0.1-1.0)
[2022-10-15 14:51] LABS: ALKALINE PHOSPHATASE 67 U/L (40-136); CREATININE SERUM 0.85 MG/DL (0.60-1.30); GFR ESTIMATED 77
[2022-10-15 14:52] LABS: BUN/CREATININE RATIO 19
[2022-10-15 14:54] LABS: ALANINE AMINOTRANSFERASE 16 U/L (0-55); MAGNESIUM 2.4 MG/DL (1.6-2.4)
--- NOTE | 2022-10-15 14:57 | ED Chest Pain ---
General Chief Complaint: Chest Pain Stated Complaint: CHEST PAIN Nursing Triage Note: SENT FROM [facility] WITH CHEST PAIN. PT STATES SHE HAD ACID REFLUX ALL NIGHT BUT WOKE UP WITH CHEST PAIN. Source: patient, old records Exam Limitations: no limitations History of Present Illness Date Seen by Provider: Oct 15, 2022 Time Seen by Provider: 14:12 Allergies and Home Medications Allergies Coded Allergies: Penicillins (Verified Allergy, Unknown, 08/28/17) Sulfa (Sulfonamide Antibiotics) (Verified Allergy, Unknown, 05/07/21) codeine (Verified Allergy, Unknown, 08/28/17) morphine (Verified Allergy, Unknown, 08/28/17) Patient Home Medication List Acetaminophen (Tylenol Extra Strength) 500 Mg Tablet, 1,000 MG PO Q8H PRN for PAIN-MILD (1-4), (Reported) Entered as Reported by: KAMERON JORDAN on 01/07/19 1318 Bupropion HCl (Bupropion Xl) 300 Mg Tab.er.24h, 300 MG PO DAILY, (Reported) Entered as Reported by: MARGOT POTTER on 10/13/22 1539 Celecoxib (Celecoxib) 200 Mg Capsule, 200 MG PO DAILY, (Reported) Entered as Reported by: MARGOT POTTER on 10/13/22 153 Cholecalciferol (Vitamin D3) (Vitamin D3) 125 Mcg (5000 Unit) Tab.rapdis, 125 MC G PO DAILY, (Reported) Entered as Reported by: MARGOT POTTER on 10/13/22 1539 Cyanocobalamin (Vitamin B-12) (Vitamin B-12) 1,000 Mcg Capsule, 1,000 MCG PO DAILY, (Reported) Entered as Reported by: MARGOT POTTER on 10/13/22 153 Fenofibrate,Micronized (Fenofibrate) 90 Mg Capsule, 90 MG PO DAILY, (Reported) Entered as Reported by: MARGOT POTTER on 10/13/22 1539 Hydrocortisone Acetate (Anucort-Hc) 25 Mg Supp.rect, 25 MG RC UD, (Reported) Entered as Reported by: MARGOT POTTER on 10/13/22 153 Levothyroxine Sodium (Levothyroxine) 125 Mcg Capsule, 125 MCG PO DAILY Prescribed by: MARCELA PETIT on 05/10/21 1001 Pantoprazole Sodium (Pantoprazole Sodium) 40 Mg Tablet.dr, 40 MG PO BID PRN for HEARTBURN, (Reported) Entered as Reported by: LETI LOPEZ on 05/10/21926 Sucralfate (Carafate) 1 Gram Tablet, 1 GM PO QID Prescribed by: GRETCHEN DENIS on 10/15/22 1701 Discontinued Medications Aspirin/Acetaminophen/Caffeine (Excedrin Migraine Caplet) 1 Each Tablet, 2 EACH PO Q6-8HR PRN for Headache, (Reported) Discontinued Reason: No Longer Taking Entered as Reported by: LETI LOPEZ on 05/10/21926 Calcium Carbonate (Tums Ultra) 400 Mg Tab.chew, 400-800 MG PO UD PRN for INDIGESTION, (Reported) Discontinued Reason: No Longer Taking Entered as Reported by: LETI LOPEZ on 05/10/21926 Diphenhydramine HCl/Zinc Acet (Benadryl Itch Stopping Crm) 28.3 Gm Cream..g., 1 APPLIC TP UD PRN for ITCHING, (Reported) Discontinued Reason: No Longer Taking Entered as Reported by: LETI LOPEZ on 05/10/21926 Docusate Sodium (Stool Softener) 100 Mg Tablet, 100-200 MG PO BID PRN for CONSTIPATION-1ST LINE, (Reported) Discontinued Reason: No Longer Taking Entered as Reported by: LETI LOPEZ on 05/10/21926 Fluticasone Propionate (Flonase Allergy Relief) 9.9 Ml [place].susp, 2 SPRAY NSEACH HS PRN for CONGESTION, (Reported) Discontinued Reason: No Longer Taking Entered as Reported by: LETI LOPEZ on 05/10/21926 Ibuprofen (Ibuprofen) 200 Mg Tablet, 400-600 MG PO Q8H PRN for PAIN-MILD (1-4), (Reported) Discontinued Reason: No Longer Taking Entered as Reported by: LETI LOPEZ on 05/10/21926 Meclizine HCl (Meclizine HCl) 25 Mg Tablet, 25 MG PO Q4H Discontinued Reason: No Longer Taking Prescribed by: MARCELA PETIT on 05/10/21 1002 Ondansetron (Ondansetron Odt) 4 Mg Tab.rapdis, 4 MG PO Q4H Discontinued Reason: No Longer Taking Prescribed by: MARCELA PETIT on 05/10/21 1003 Polyethylene Glycol 3350 (Miralax) 17 Gm Powd.pack, 17 GM PO DAILY PRN for CONSTIPATION-2ND LINE, (Reported) Discontinued Reason: No Longer Taking Entered as Reported by: LETI LOPEZ on 05/10/21 0927 Past Syqleiv-Cqvjmd-Yjjvyd Hx Patient Social History Tobacco Use?: Yes Smoking Status: Former Smoker Substance use?: No Alcohol Use?: No Immunizations Up To Date Tetanus Booster (TDap): Unknown First/Initial COVID19 Vaccinat: 02/03 Second COVID19 Vaccination Adam: 03/05 Third COVID19 Vaccination Date: 02/03 COVID19 Vaccine Electromechanic: UNKNOWN Seasonal Allergies Seasonal Allergies: No Past Medical History Surgery/Hospitalization HX: COLONOSCOPY/POLYPECTOMY Surgeries: Yes Section, Hysterectomy Respiratory: No Cardiac: Yes High Cholesterol Neurological: No Reproductive Disorders: No 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, 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 Genitourinary: No Gastrointestinal: Yes (blood in stools) Gastroesophageal Reflux, Chronic Constipation, Hemorrhoids, Polyps, Irritable Bowel Musculoskeletal: No Endocrine: Yes (SEVERE NON-COMPLIANCE WITH MEDICATIONS AND FOLLOW UP) Hypothyroidsim HEENT: No Cancer: No Psychosocial: Yes Anxiety Integumentary: No Blood Disorders: No Family Medical History No Pertinent Family Hx Physical Exam Vital Signs Vital Signs - First Documented 10/15/22 14:00 Temp 36.3 Pulse 90 Resp 16 B/P (MAP) 121/83 (96) Pulse Ox 96 O2 Delivery Room Air Capillary Refill : Height, Weight, BMI Height: 5'2.00" Weight: 148lbs. 0.0oz. 67.137979nj; 29.00 BMI Method:Stated Progress/Results/Core Measures Results/Orders Lab Results Laboratory Tests Test 10/15/22 14:09 10/15/22 16:02 Range/Units White Blood Count 8.5 4.3-11.0 10^3/uL Red Blood Count 4.99 3.80-5.11 10^6/uL Hemoglobin 14.9 11.5-16.0 g/dL Hematocrit 44 35-52 % Mean Corpuscular Volume 89 80-99 fL Mean Corpuscular Hemoglobin 30 25-34 pg Mean Corpuscular Hemoglobin Concent 34 32-36 g/dL Red Cell Distribution Width 13.0 10.0-14.5 % Platelet Count 341 130-400 10^3/uL Mean Platelet Volume 10.8 9.0-12.2 fL Immature Granulocyte % (Auto) 0 % Neutrophils (%) (Auto) 56 42-75 % Lymphocytes (%) (Auto) 35 12-44 % Monocytes (%) (Auto) 6 0-12 % Eosinophils (%) (Auto) 2 0-10 % Basophils (%) (Auto) 1 0-10 % Neutrophils # (Auto) 4.8 1.8-7.8 10^3/uL Lymphocytes # (Auto) 3.0 1.0-4.0 10^3/uL Monocytes # (Auto) 0.5 0.0-1.0 10^3/uL Eosinophils # (Auto) 0.2 0.0-0.3 10^3/uL Basophils # (Auto) 0.1 0.0-0.1 10^3/uL Immature Granulocyte # (Auto) 0.0 0.0-0.1 10^3/uL Prothrombin Time 12.1 L 12.2-14.7 SEC INR Comment 0.9 0.8-1.4 Activated Partial Thromboplast Time 25 24-35 SEC Sodium Level 142 135-145 MMOL/L Potassium Level 3.9 3.6-5.0 MMOL/L Chloride Level 106 98-107 MMOL/L Carbon Dioxide Level 24 21-32 MMOL/L Anion Gap 12 5-14 MMOL/L Blood Urea Nitrogen 16 7-18 MG/DL Creatinine 0.85 0.60-1.30 MG/DL Estimat Glomerular Filtration Rate 77 BUN/Creatinine Ratio 19 Glucose Level 93 70-105 MG/DL Calcium Level 10.6 H 8.5-10.1 MG/DL Corrected Calcium 8.5-10.1 MG/DL Magnesium Level 2.4 1.6-2.4 MG/DL Total Bilirubin 0.3 0.1-1.0 MG/DL Aspartate Amino Transf (AST/SGOT) 15 5-34 U/L Alanine Aminotransferase (ALT/SGPT) 16 0-55 U/L Alkaline Phosphatase 67 40-136 U/L Myoglobin 35.4 10.0-92.0 NG/ML Troponin I < 0.028 < 0.028 <0.028 NG/ML Total Protein 7.9 6.4-8.2 GM/DL Albumin 4.8 H 3.2-4.5 GM/DL Lipase 44 8-78 U/L My Orders Orders - GRETCHEN FLANNERY MD Ekg Tracing (10/15/22 14:06) Cbc With Automated Diff (10/15/22 14:12) Magnesium (10/15/22 14:12) Chest 1 View, Ap/Pa Only (10/15/22 14:12) Comprehensive Metabolic Panel (10/15/22 14:12) Myoglobin Serum (10/15/22 14:12) Protime With Inr (10/15/22 14:12) Partial Thromboplastin Time (10/15/22 14:12) O2 (10/15/22 14:12) Monitor-Rhythm Ecg Trace Only (10/15/22 14:12) Lipid Panel (10/16/22 06:00) Ed Iv/Invasive Line Start (10/15/22 14:12) Troponin I [place] (10/15/22 14:12) Ondansetron Injection (Zofran Injectio (10/15/22 14:30) Antacid Suspension (Mylanta Suspension (10/15/22 14:30) Lipase (10/15/22 14:25) Lidocaine 2% Viscous 15 Ml (Xylocaine Vi (10/15/22 14:30) Pantoprazole Injection (Protonix Injecti (10/15/22 15:15) Troponin I [place] (10/15/22 16:10) Medications Given in ED Current Medications Medications Dose Ordered Sig/Kate Route Start Time Stop Time Status Last Admin Dose Admin Al Hydrox/Mg Hydrox/Simethicone 30 ml ONCE ONCE PO 10/15/22 14:30 10/15/22 14:31 DC 10/15/22 14:37 30 ML Lidocaine HCl 15 ml ONCE ONCE PO 10/15/22 14:30 10/15/22 14:31 DC 10/15/22 14:37 15 ML Ondansetron HCl 8 mg ONCE ONCE IVP 10/15/22 14:30 10/15/22 14:31 DC 10/15/22 14:37 8 MG Pantoprazole 40 mg ONCE ONCE IV 10/15/22 15:15 10/15/22 15:16 DC 10/15/22 15:10 40 MG Vital Signs/I&O 10/15/22 14:00 Temp 36.3 Pulse 90 Resp 16 B/P (MAP) 121/83 (96) Pulse Ox 96 O2 Delivery Room Air Blood Pressure Mean: 96 Progress Progress Note : Time: 17:07 Progress Note Patient's initial work-up was unremarkable. Pain improved significantly after GI cocktail and resolved after IV Protonix. Repeat troponin was negative. See discharge instructions for further discussion. Initial ECG Impression Date: Oct 15, 2022 Initial ECG Impression Time: 14:10 Initial ECG Rate: 84 Initial ECG Rhythm: Normal Sinus Initial ECG Impression: Normal Comment Normal sinus rhythm with no ST elevation or depression. No abnormal intervals or axis deviation. Diagnostic Imaging Diagonstic Imaging: Xray Plain Films/CT/US/NM/MRI: chest Comments NAME: BERONICA ZAMAN [facility] REC#: [id number] PT STATUS: REG ER : 1960 PHYSICIAN: GRETCHEN FLANNERY MD ADMIT DATE: 10/15/22/ER Signed Date of Exam:10/15/22 CHEST 1 VIEW, AP/PA ONLY INDICATION: Chest pain. Comparison is made with prior examination 11/18/2018. FINDINGS: The heart size, mediastinal configuration, and pulmonary vascularity are within normal limits. There is no pleural effusion, pneumothorax, or pneumonia. The osseous structures are unremarkable. IMPRESSION: No acute cardiopulmonary abnormality. Dictated by: Dictated on workstation # [id number] Dict: 10/15/22 1433 Trans: 10/15/22 1552 [id number] Interpreted by: BRITNEY SANTAMARIA MD Electronically signed by: BRITNEY SANTAMARIA MD 10/15/22 1552 Departure Impression Primary Impression: Atypical chest pain Additional Impression: Epigastric pain Disposition: 01 HOME, SELF-CARE Condition: Improved Departure-Patient Inst. Decision time for Depature: 16:55 Referrals: MARCELA PETIT DO (PCP/Family) Primary Care Physician Patient Instructions: Acid Reflux and GERD in Adults (DC), Chest Pain Add. Discharge Instructions: Increase Protonix (pantoprazole) to 40 mg twice daily until otherwise instructed. Add Carafate (sucralfate) 4 times daily, 30 minutes before meals and again at bedtime. This will work best if you crush it or dissolve it and mix into 5 to 10 mL water to make a slurry. Follow through with your appointment for endoscopy. You may take Tylenol (acetaminophen) up to 1000 mg every 6 hours as needed for pain, but avoid NSAID medications such as ibuprofen or naproxen. You may also take Tums for treatment of acute pain flareups. Avoid the following: Eating large meals, eating close to bedtime, caffeine, carbonation, chocolate, citrus fruits and juices, tomato products, alcohol, tobacco, spicy foods, mints, NSAID medications such as ibuprofen or naproxen, fatty/greasy foods, or anything else you know irritates your stomach. Follow-up with your primary care provider is soon as possible. Call on the next business day to schedule an appointment. Return to care if you have worsening symptoms despite following these instructions. All discharge instructions reviewed with patient and/or family. Voiced understanding. Scripts Sucralfate (Carafate) 1 Gram Tablet 1 GM PO QID, #120 TAB Dissolve or crush and mix into 5-10 mL water to make a slurry. Take 30 minutes before meals and at bedtime. Prov: GRETCHEN FLANNERY MD 10/15/22 Copy Copies To 1: MARCELA PETIT DO Copies To 2: LINCOLN VIVAR DO GRETCHEN FLANNERY MD Oct 15, 2022 14:57
[2022-10-15] MEDS ORDERED: PANTOPRAZOLE 40 MG (PROTONIX) VIAL IV ONE (15:15)
[2022-10-15] MEDS ORDERED: SUCR1TAB36 PO (17:01)
[2022-10-15 17:10] VITALS: BP 119/78
== END 2022-10-15 17:10 | disposition home or self-care (01) ==
LOC: EDUNIT# 14:00 → ER 14:02
DX: R07.89 Other chest pain (principal); R10.13 Epigastric pain; Z87.891 Personal history of nicotine dependence
CPT/HCPCS: 36415; 71045; 80053; 83690; 83735; 83874; 84484; 85025; 85610; 85730; 93005; 93041

== ENCOUNTER 2022-10-18 08:54 | Day surgery (SDC) | payer BC ==
[~2022-10-18] VITALS: Ht 157.2 cm; Wt 73.0 kg
[~2022-10-18 08:54] MED LIST changes: +SUCR1TAB36 PO
[2022-10-18] MEDS ORDERED: LACTATED RINGERS 1,000 ML IV STA (08:56)
[2022-10-18] MEDS ORDERED: HURRICAINE EXT TUBE (BENZOCAINE) XX PRN (09:00)
--- NOTE | 2022-10-18 09:13 | Progress Note-Pre Operative ---
Pre-Operative Progress Note Date of Available H&P: Sep 28, 2022 Date H&P Reviewed: Oct 18, 2022 Time H&P Reviewed: 09:12 History & Physical: H&P Reviewed, Patient Examed, No changes noted Pre-Operative Diagnosis: gerd, rectal bleeding LINCOLN VIVAR DO Oct 18, 2022 09:13
[2022-10-18 09:15] VITALS: BP 136/77
[2022-10-18] MEDS ORDERED: PROPOFOL INJECTION 50 ML IV ONE (10:03)
[2022-10-18 10:40] VITALS: BP 122/63
--- NOTE | 2022-10-18 10:41 | Discharge Inst-Simple/Standard ---
Discharge Inst-Standard Patient Instructions/Follow Up Plan of Care/Instructions/FU: 2 weeks Jesus Manuel Activity as Tolerated: Yes Discharge Diet: Regular Diet (high fiber) LINCOLN VIVAR DO Oct 18, 2022 10:41
[2022-10-18 10:45] VITALS: BP 114/64
[2022-10-18 10:47] VITALS: BP 122/65
[2022-10-18 11:20] VITALS: BP 122/65
--- NOTE | 2022-10-18 18:34 | OPERATIVE REPORT ---
DATE OF SERVICE: 10/18/2022 PREOPERATIVE DIAGNOSES: GERD and blood per rectum. POSTOPERATIVE DIAGNOSES: Hiatal hernia, colon polyp, internal hemorrhoids. PROCEDURE: EGD with biopsies, colonoscopy with hot biopsy polypectomy x1, cold biopsy polypectomy x1. SURGEON: Dr. Ken. ANESTHESIA: Per DICE MAKER. ESTIMATED BLOOD LOSS: None. COMPLICATIONS: None. INDICATION: The patient is a 62-year-old female with GERD symptoms and blood per rectum. She understands risks and benefits of the procedure and wishes to proceed. Consent was signed in chart. DESCRIPTION OF PROCEDURE: The patient was taken to the endoscopy suite, placed in the left lateral recumbent position. Timeout was performed. The scope was inserted into the mouth, down the esophagus, stomach, into the duodenum without difficulty. No polyps, masses, ulcerations within the duodenum. Scope was slowly retracted back in the stomach where it was further insufflated. Slight erythematous changes. Biopsy of the antrum was obtained. Scope was retroflexed noting a small hiatal hernia. No other pathology. Scope was returned to its normal position, slowly withdrawn until distal esophagus. Biopsy of GE junction was obtained. No polyps, masses or ulcerations. Scope was slowly retracted back until completely removed. Digital rectal exam was performed. No palpable polyps, masses or ulcerations. Scope was inserted in the rectum, advanced all the way to the cecum with minimal difficulty. Prep was adequate. Scope was then slowly retracted back. No polyps, masses or ulcerations in cecum, ascending colon. In the transverse colon, small polyp was present, which cold biopsy polypectomy was performed. Scope was then continued retracted back. No polyps, masses, or ulceration in remainder of the transverse and descending colon. In the sigmoid colon, another polyp was present, which hot biopsy polypectomy was performed. Scope was then continuously retracted back, also noting minimal amount of diverticulosis. The scope was then continually retracted back into the rectum where retroflexed. There was no other pathology except for some internal hemorrhoids. Scope was returned to its normal position, slowly withdrawn until completely removed. The patient tolerated the procedure well without complications and was taken to recovery room in stable condition. RECOMMENDATIONS: The patient will need repeat colonoscopy in five years. Any issues before that be seen at that time. The patient will continue on current medication. Await biopsy results. We will consider working up gallbladder. Also recommend high fiber diet due to diverticulosis. Job ID: [id number] DocumentID: [id number] Dictated Date: 10/18/2022 10:40:10 Photographic Colorist Date: 10/18/2022 18:32:00 Dictated By: DO ZOHRA GIFFORD
--- NOTE | 2022-10-25 14:50 | Anesthesia-General Post-Op ---
MAC Significant Intra-Op Events Notes late entry 10/18/22 @ 1100 Patient Condition Mental Status/LOC: Same as Preop Cardiovascular: Satisfactory Nausea/Vomiting: Absent Respiratory: Satisfactory Pain: Controlled Complications: Absent Post Op Complications Complications None Follow Up Care/Instructions Patient Instructions None needed. Anesthesiology Discharge Order Discharge Order Patient is doing well, no complaints, stable vital signs, no apparent adverse anesthesia problems. No complications reported per nursing. AKHIL DUTTA CRNA Oct 25, 2022 14:50
== END 2022-10-18 11:24 | disposition home or self-care (01) ==
LOC: ENDO 08:54
PROVIDERS: ATTEND Surgery
DX: D12.3 Benign neoplasm of transverse colon (principal); K63.5 Polyp of colon; K44.9 Diaphragmatic hernia without obstruction or gangrene; K57.31 Diverticulosis of large intestine without perforation or abscess with bleeding; K64.8 Other hemorrhoids; K21.00 Gastro-esophageal reflux disease with esophagitis, without bleeding; K31.89 Other diseases of stomach and duodenum; K29.70 Gastritis, unspecified, without bleeding; Z87.891 Personal history of nicotine dependence; Z79.899 Other long term (current) drug therapy; E66.9 Obesity, unspecified; Z68.29 Body mass index [BMI] 29.0-29.9, adult

== ENCOUNTER → 2022-10-24 | Outpatient (CLI) | payer BC ==
--- NOTE | 2022-10-24 09:17 | Diagnostic Imaging Report ---
PROCEDURE: US Gallbladder. TECHNIQUE: Multiple real-time grayscale images were obtained over the right upper quadrant in various projections. INDICATION: Right upper quadrant pain. Liver is normal in size 17 cm. Portal vein is patent and shows normal direction of flow. Gallbladder is without stones or sludge. No wall thickening or biliary duct dilatation is seen. Pancreas is unremarkable. Aorta is nonaneurysmal. IVC is patent. Right kidney is without calculi or hydronephrosis. There is no ascites. IMPRESSION: Unremarkable right upper quadrant ultrasound. There is no evidence of cholelithiasis or acute cholecystitis. Dictated by: Dictated on workstation # [id number]
== END ==
LOC: RAD 08:08
PROVIDERS: ATTEND Surgery
DX: R10.11 Right upper quadrant pain (principal)
CPT/HCPCS: 76705

== ENCOUNTER → 2022-11-07 | Outpatient (CLI) | payer BC ==
--- NOTE | 2022-11-07 13:03 | Diagnostic Imaging Report ---
INDICATION: Right upper quadrant pain. TECHNIQUE: The patient was administered 5.1 mCi of technetium 99m Choletec intravenously and imaging over the abdomen was performed. At 45 minutes, the patient ingested 8 ounces of Ensure and a gallbladder ejection fraction was calculated. The patient denied discomfort during the study. FINDINGS: There is homogeneous uptake of activity by the liver. There is passage of contrast into the common duct and gallbladder. There is normal passage of activity into the small bowel. The gallbladder ejection fraction is normal at 56%. IMPRESSION: Normal HIDA scan and gallbladder ejection fraction. Dictated by: Dictated on workstation # [id number]
== END ==
LOC: CARD 09:48
PROVIDERS: ATTEND Surgery
DX: R10.11 Right upper quadrant pain (principal)
CPT/HCPCS: 78227; A9537